=== PATIENT | female | born 1935 | race Hispanic/Latino ===

== ENCOUNTER 2017-03-14 17:41 | Inpatient (IN) | payer MEDICARE, OTHER ==
[2017-03-14 17:42] VITALS: BMI 21.3
[2017-03-14] MEDS ORDERED: TDAP Vaccine 0.5 mL Syr IM ONE (19:25)
[2017-03-14 20:01] LABS: EOS % 0.2 % (1.5-5.0); GRAN # 3.07 (1.4-6.5); GRAN % 75.7 % (50.0-68.0); HEMOGLOBIN 11.2 gm/dL (12.0-16.0); LYMPH # 0.8 (1.2-3.4); LYMPH % 20.2 % (22.0-35.0); MEAN CELL VOLUME 88.8 fL (80.0-105.0); MEAN CORPUSCULAR HEMOGLOBIN 29.2 pg (25.0-35.0); MEAN CORPUSCULAR HGB CONC 32.8 g/dl (31.0-37.0); MEAN PLATELET VOLUME 9.1 fl (7.0-11.0); MONO # 0.2 (0.1-0.6); MONO % 3.9 % (1.0-6.0); PLATELET COUNT 178 10^3/uL (120.0-450.0); RBC 3.84 10^6/uL (3.5-6.1); RED CELL DISTRIBUTION WIDTH 15.2 % (11.5-14.5); WHITE BLOOD COUNT 4.1 10^3/ul (4.5-11.0)
[2017-03-14 20:10] LABS: ALBUMIN 3.8 g/dL (3.0-4.8); ALT/SGPT 20 U/L (7-56); AST/SGOT 27 U/L (15-39); BLOOD UREA NITROGEN 12 mg/dL (7-21); CALCIUM 8.9 mg/dL (8.4-10.5); GFR AFRICAN-AMERICAN > 60; GFR NON-AFRICAN AMERICAN > 60
[2017-03-14 21:10] LABS: TROPONIN I < 0.01 ng/mL
--- NOTE | 2017-03-14 21:57 | ED PDOC ---
Arrival/HPI - General Chief Complaint: Trauma Time Seen by Provider: 03/14/17 19:24 Historian: Patient - History of Present Illness Narrative History of Present Illness (Text): 03/14/17 21:53 81-year-old female presents today with head injury status post fall. Patient states around 9:00 in the morning she was walking holding onto the wall to go to the bathroom. Patient states the next thing that She knew she was on the ground. Patient states she was able to get herself up. Patient states a friend of hers saw her head injury and thought that she should come into the hospital. Patient denies headaches or dizziness or weakness. Denies chest pain or shortness of breath. Patient denies abdominal pain. Patient states she had a fall back in January of this year and since then she has been having pain to the left hip. Patient states since then she has been having difficulty with ambulation. No medications have been taken for pain at home. No other complaints patient refusing any medications for pain at present time Symptom Onset: Sudden Symptom Course: Resolved Quality: Other (no pain) Past Medical History - Provider Review Nursing Documentation Reviewed: Yes - Travel History Have you recently traveled outside [place] w/in the past 3 mons?: No - Tetanus Immunization Tetanus Immunization: Unknown - Cardiac Hx Cardiac Disorders: Yes Hx Hypertension: Yes - Pulmonary Hx Respiratory Disorders: No - Neurological Hx Neurological Disorder: Yes Hx Seizures: Yes - HEENT Hx HEENT Disorder: Yes Hx Cataracts: Yes Other/Comment: left ear - hard of hearing - Renal Hx Renal Disorder: No - Endocrine/Metabolic Hx Hypothyroidism: Yes - Hematological/Oncological Hx Blood Disorders: Yes Hx Cancer: Yes (Leukemia) Hx Chemotherapy: No (Refuses) - Integumentary Hx Dermatological Disorder: No - Musculoskeletal/Rheumatological Hx Musculoskeletal Disorders: Yes Hx Arthritis: Yes Hx Falls: Yes Hx Fractures: Yes (R/ Shoulder and Ribs) - Gastrointestinal Hx Gall Bladder Disease: Yes - Genitourinary/Gynecological Hx Genitourinary Disorders: No (denies) - Psychiatric Hx Psychophysiologic Disorder: No (denies) Hx Depression: No Hx Emotional Abuse: No Hx Physical Abuse: No Hx Substance Use: No - Surgical History Hx Cholecystectomy: Yes - Anesthesia Hx Anesthesia: No Hx Anesthesia Reactions: No ("had a hard time waking me up.") - Suicidal Assessment Feels Threatened In Home Enviroment: No Family/Social History - Physician Review Nursing Documentation Reviewed: Yes Family/Social History: Unknown Family HX Smoking Status: Never Smoked Hx Alcohol Use: No Hx Substance Use: No Allergies/Home Meds Allergies/Adverse Reactions: Allergies No Known Allergies Allergy (Verified 05/17/14 16:23) Home Medications: Home Meds Medication Instructions Recorded Confirmed Metoprolol Tartrate [Metoprolol 25 mg PO DAILY 05/17/14 03/14/17 Tartrate] Aspirin [Ecotrin] 81 mg PO DAILY 03/14/17 03/14/17 levETIRAcetam [Keppra] 500 mg PO BID 03/14/17 03/14/17 Review of Systems - Review of Systems Constitutional: absent: Fatigue, Fevers Eyes: absent: Vision Changes, Photophobia, Eye Pain Respiratory: absent: SOB, Cough Cardiovascular: absent: Chest Pain, Palpitations Gastrointestinal: absent: Nausea Genitourinary Female: absent: Dysuria, Frequency Musculoskeletal: Arthralgias. absent: Back Pain, Neck Pain Skin: Rash Neurological: absent: Headache, Dizziness Physical Exam Vital Signs Reviewed: Yes Vital Signs Temp Pulse Resp BP Pulse Ox 03/14/17 20:18 98.3 F 82 18 131/78 98 03/14/17 17:56 98.3 F 86 114 H 144/77 98 Temperature: Afebrile Blood Pressure: Normal Pulse: Regular Respiratory Rate: Normal Appearance: Positive for: Well-Appearing, Non-Toxic, Comfortable Pain Distress: None Mental Status: Positive for: Alert and Oriented X 3 - Systems Exam Head: Present: Contusion, Swelling, Ecchymosis Pupils: Present: PERRL Extroacular Muscles: Present: EOMI Conjunctiva: Present: Normal Ears: Present: Normal, NORMAL TM Mouth: Present: Moist Mucous Membranes Pharnyx: Present: Normal Neck: Present: Normal Range of Motion. No: MIDLINE TENDERNESS, Paraspinal Tenderness Respiratory/Chest: Present: Clear to Auscultation, Good Air Exchange. No: Respiratory Distress, Accessory Muscle Use Cardiovascular: Present: Regular Rate and Rhythm, Normal S1, S2. No: Murmurs Abdomen: Present: Normal Bowel Sounds. No: Tenderness, Distention, Rebound, Guarding Back: Present: Normal Inspection. No: CVA Tenderness, Midline Tenderness, Paraspinal Tenderness Upper Extremity: Present: Normal ROM, NORMAL PULSES. No: Tenderness, Swelling Lower Extremity: Present: NORMAL PULSES, Tenderness (left hip; + ttp over anterior aspect; no erythema; no edema,no ecchymosis;), Swelling, Erythema, Neurovascularly Intact, Other (pelvis stable). No: Normal ROM Neurological: Present: GCS=15, Speech Normal Skin: Present: Warm, Dry Psychiatric: Present: Alert, Oriented x 3 Medical Decision Making ED Course and Treatment: 03/14/17 21:59 81-year-old female with head injury status post fall. Patient unsure what happened and does not believe that she tripped over anything. pt refusing medications for pain. CBC within normal limits CMP within normal limits Troponin within normal limits Chest x-ray: No infiltrate or effusion X-ray of the left hip: Question pubic ramus fracture EKG: NSr at 87b/m no st elevations, CAT scan of the head:FINDINGS: Brain: Moderate volume loss is seen in keeping with age. Moderate decrease in attenuation of the periventricular white matter likely related to small vessel ischemic change. Ventricles: Unremarkable. No ventriculomegaly. Bones/joints: No definite skull fracture is seen. Small osteoma of the inner skull table and the left frontal region. Soft tissues: Large hematoma of the forehead which is multifocal with marked adjacent swelling. Sinuses: Unremarkable as visualized. No acute sinusitis. Mastoid air cells: Unremarkable as visualized. No mastoid effusion. Orbits: No midline shift is present.There is no evidence of retrobulbar hemorrhage. The orbits are normal. Sella: The prominent suprasellar mass 2.1 cm. Other findings: No acute hemorrhage is seen IMPRESSION: Large hematoma left forehead from recent fall. No skull fracture seen. No intracranial bleed. There is a mass at the suprasellar region 2.1 cm. Consider correlation with MRI of the brain with contrast for more definitive assessment. CAT scan of the maxillofacial bones:FINDINGS: Bones/joints: Osteoma of the inner skull table with the left frontal region. No facial bone fractures are seen. Soft tissues: There is severe soft tissue edema consistent with posttraumatic contusion and hematoma associated with the left frontal scalp. Orbits: There is no evidence of retrobulbar hemorrhage. The orbits are normal. Sinuses: Small retention cyst is present in the left maxillary sinus. No air- fluid levels. Sella: Suprasellar mass see CT head report. IMPRESSION: Marked soft tissue edema and hematoma formation left forehead. No calvarial or facial bone fractures. Suprasellar mass. ct of pelvis; r/o hip fracture FINDINGS: Bones/joints: Bony structures are osteopenic. There are degenerative changes in the lower lumbar spine. There are compression deformities L4 and L5, age-indeterminate. There is disc disease L34, L4-5 and L5-S1. Upper sacrum is intact. There is deformity of the sacrococcygeal junction with anterior angulation consistent with fracture. There is edema in the dorsal soft tissues at the fracture site. There is patchy sclerosis in the left sacral ala. The sacroiliac joints are symmetric. Right ileum, ischium and pubis are intact. Right hip is intact. There is narrowing of the right hip joint. Symphysis pubis is normal in width There is a comminuted fracture of the left pubis extending into the acetabulum. There is a comminuted fracture of the left ischium. There is calcification lateral to the left ischial fracture, possibly myositis ossificans There is minimal edema in muscles of the pelvic floor on the left. Left hip is intact. There is degenerative with grade along the iliac bones bilaterally. Soft tissues: See above Vasculature: There are vascular calcifications. Stomach and bowel: There is mild gaseous distention of visualized small bowel.Colon is incompletely distended which limits evaluation. Bladder: Urinary bladder is markedly distended, 12 x 12 x 15 cm. Dome of the bladder is approximately at the level of the umbilicus. No stones. Other findings: Inferior portion of the liver is not optimally evaluated. Portion of the spleen is included on the images. IMPRESSION: Left ischial and pubic fractures with soft tissue swelling and possible myositis ossificans; osteopenia degenerative change; sacral fracture at the sacrococcygeal junction; compression fractures L4 and L5, age-indeterminate; markedly distended bladder suggest voiding dysfunction and urinary retention 03/14/17 22:[address] patient urinated a large amount in ER. abdomen no tender. impression; syncope, head injury, facial contusion, pelvic fractures, compression fracture lumbar spine admit to tele. dr. childers. - Lab Interpretations Lab Results: 03/14/17 19:40 03/14/17 19:40 Lab Results 03/14/17 19:40: WBC 4.1 L D, RBC 3.84, Hgb 11.2 L, Hct 34.1 L, MCV 88.8, MCH 29.2, MCHC 32.8, RDW 15.2 H, Plt Count 178, MPV 9.1, Gran % 75.7 H, Lymph % ( Auto) 20.2 L, [facility] % (Auto) 3.9, Eos % (Auto) 0.2 L, Baso % (Auto) 0.0, Gran # 3.07, Lymph # 0.8 L, [facility] # 0.2, Eos # 0.0, Baso # 0.00 03/14/17 19:40: Sodium 137, Potassium 4.2, Chloride 102, Carbon Dioxide 27, Anion Gap 12, BUN 12, Creatinine 0.8, Est GFR ( Amer) > 60, Est GFR (Non- Af Amer) > 60, Random Glucose 107, Calcium 8.9, Total Bilirubin 0.7, AST 27, ALT 20, Alkaline Phosphatase 141 H, Lactate Dehydrogenase 475, Total Creatine Kinase 58, Troponin I < 0.01 D, Total Protein 7.6, Albumin 3.8, Globulin 3.8, Albumin/Globulin Ratio 1.0 L - RAD Interpretation Radiology Orders: 03/14/17 19:24 HEAD W/O CONTRAST [CT] Stat MAXILLOFACIAL W/O CONTRAST [CT] Stat CHEST PORTABLE [RAD] Stat Hip Left [HIP MIN 2V W/ PELVIS LT] [RAD] Stat 03/14/17 21:47 PELVIS W/O PO OR IV CONTRAST [CT] Stat - Medication Orders Current Medication Orders: Discontinued Medications Tetanus/Reduced Diphtheria/Acell Pertussis (Boostrix Vaccine Inj) 0.5 ml IM .ONCE ONE Stop: 03/14/17 19:26 Last Admin: 03/14/17 19:58 Dose: 0.5 ml Disposition/Present on Arrival - Present on Arrival Any Indicators Present on Arrival: No History of DVT/PE: No History of Uncontrolled Diabetes: No Urinary Catheter: No History of Decub. Ulcer: No History Surgical Site Infection Following: None - Disposition Have Diagnosis and Disposition been Completed?: Yes Diagnosis: Head injury, Traumatic hematoma of forehead, Facial contusion, Pelvic fracture , Lumbar compression fracture Disposition: HOSPITALIZED Disposition Time: 22:57 Patient Plan: Admission, Telemetry Condition: FAIR Referrals: Taylor,Agustín A, MD [Primary Care Provider] - Follow up with primary Forms: [employer] (Frisian)
[2017-03-14 23:26] LABS: PH,URINE 6.5 (4.7-8.0); URINE BILIRUBIN NEGATIVE (NEGATIVE); URINE BLOOD NEGATIVE (NEGATIVE); URINE GLUCOSE (UA) NEGATIVE (NEGATIVE); URINE LEUKOCYTE ESTERASE NEGATIVE Leu/uL (NEGATIVE); URINE NITRATE NEGATIVE (NEGATIVE); URINE PROTEIN NEGATIVE mg/dL (<30 mg/dL); URINE UROBILINOGEN 0.2 E.U./dL (<1 E.U./dL)
[2017-03-14 23:38] LABS: URINE APPEARANCE CLEAR (CLEAR); URINE COLOR STRAW (YELLOW)
--- NOTE | 2017-03-15 08:37 | CT ---
PROCEDURE: CT HEAD WITHOUT CONTRAST. HISTORY: headache COMPARISON: None available. TECHNIQUE: Axial computed tomography images were obtained through the head/brain without intravenous contrast. Radiation dose: Total exam DLP = 725 mGy-cm. This CT exam was performed using one or more of the following dose reduction techniques: Automated exposure control, adjustment of the mA and/or kV according to patient size, and/or use of iterative reconstruction technique. FINDINGS: HEMORRHAGE: No intracranial hemorrhage. BRAIN: No mass effect or edema. No atrophy or chronic microvascular ischemic changes. VENTRICLES: Unremarkable. No hydrocephalus. CALVARIUM: Unremarkable. PARANASAL SINUSES: Unremarkable as visualized. No significant inflammatory changes. MASTOID AIR CELLS: Unremarkable as visualized. No inflammatory changes. OTHER FINDINGS: Large left frontal soft tissue hematoma. IMPRESSION: Large left frontal soft tissue hematoma.
--- NOTE | 2017-03-15 08:47 | CT ---
PROCEDURE: CT MAXILLOFACIAL BONES WITHOUT CONTRAST HISTORY: fall, left sided head injury/orbital swelling COMPARISON: None TECHNIQUE: Contiguous axial CT images of the maxillofacial bones were obtained. Coronal and sagittal reformats were generated. Radiation dose: Total exam DLP = mGy-cm. This CT exam was performed using one or more of the following dose reduction techniques: Automated exposure control, adjustment of the mA and/or kV according to patient size, and/or use of iterative reconstruction technique. FINDINGS: NASAL BONES: Unremarkable. ORBITS: Unremarkable. PARANASAL SINUSES/ MASTOIDS: Clear. MAXILLA: Unremarkable. MANDIBLE/ TEMPOROMANDIBULAR JOINTS: Unremarkable. SKULL BASE: Unremarkable. TEMPORAL BONES: Middle ears and mastoid grossly unremarkable. OTHER FINDINGS: Large left frontal soft tissue hematoma.. IMPRESSION: Large left frontal soft tissue hematoma. No fracture.
--- NOTE | 2017-03-15 09:11 | CT ---
PROCEDURE: CT Pelvis without contrast HISTORY: left hip pain/ ? pelvis fx COMPARISON: None. TECHNIQUE: Contiguous axial images of the pelvis . No intravenous or oral contrast given. Coronal and sagittal reformats generated. Radiation dose: Total exam DLP = 197 mGy-cm. This CT exam was performed using one or more of the following dose reduction techniques: Automated exposure control, adjustment of the mA and/or kV according to patient size, and/or use of iterative reconstruction technique. FINDINGS: BLADDER: Unremarkable. No mass. REPRODUCTIVE ORGANS: Unremarkable. VISUALIZED BOWEL: Unremarkable. PERITONEUM: Unremarkable, as visualized. No free fluid. No free air. LYMPH NODES: Unremarkable. No enlarged lymph nodes. BONES: Left superior pubic ramus and inferior pubic ramus fractures with callus formation and possible myositis ossificans. No other fracture deformity is observed. Extensive soft tissue swelling. VASCULATURE: Unremarkable. OTHER FINDINGS: None. IMPRESSION: Left superior pubic ramus and inferior pubic ramus fractures with callus formation and possible myositis ossificans. No other fracture deformity is observed. Extensive soft tissue swelling.
[2017-03-15] MEDS: Metoprolol Succinate 25 mg XL Tab PO SCH (09:54)
--- NOTE | 2017-03-15 10:31 | RAD ---
HISTORY: syncope COMPARISON: No prior. FINDINGS: LUNGS: Poor inspiration with low lung volumes, mild crowded bronchovascular markings and mild bibasilar atelectasis. The interstitial markings are also slightly increased and coarsened which may due to poor inspiration as well however the possibility of some mild underlying sequela of reactive/inflammatory airway disease not excluded. . Note made of what may represent tiny granuloma right lateral mid lung field. PLEURA: No significant pleural effusion identified, no pneumothorax apparent. CARDIOVASCULAR: Mild cardiomegaly. OSSEOUS STRUCTURES: There is a non fused fracture distal right clavicle Degenerative changes both shoulder girdles. VISUALIZED UPPER ABDOMEN: Normal. OTHER FINDINGS: None. IMPRESSION: Poor inspiration bold with low lung volumes, mild crowded bronchovascular markings and mild bibasilar atelectasis. The interstitial markings are also slightly increased and coarsened which may due to poor inspiration as well however the possibility of some mild underlying sequela of reactive/inflammatory airway disease not excluded. Probable tiny granuloma right lateral mid lung field. Mild cardiomegaly. The
--- NOTE | 2017-03-15 12:11 | CARD ---
APPROVED REPORT EKG Measurement Heart [id number] <Conclusion> Normal sinus rhythm Abnormal QRS-T angle, consider primary T wave abnormality Abnormal ECG
--- NOTE | 2017-03-15 15:03 | RAD ---
PROCEDURE: Pelvis left hip 03/14/2017. . AP view of the pelvis and frogleg lateral view left hip performed. Note that the study is limited with diminished fine soft tissue and bone detail. HISTORY: Left hip pain. COMPARISON: Comparison made with prior CT scan chest abdomen pelvis 05/18/2014 which image the pelvis and left hip in 3 planes. FINDINGS: BONES: There are fractures of the left superior and inferior pubic rami. Followup CT scan recommended. JOINTS: The the femoral heads appear appropriately located within the respective acetabula. SI joints are of poorly delineated SOFT TISSUES: Normal. OTHER FINDINGS: Multilevel degenerative spondylosis of the lumbar spine with dextroscoliosis centered in the upper lumbar region. IMPRESSION: Fractures of the left superior and inferior pubic rami. Femoral heads are appropriately located within the respective acetabula. Followup CT scan of the pelvis is recommended.
--- NOTE | 2017-03-15 16:36 | CON ---
DATE: 03/15/2017 ORTHOPEDIC CONSULT HISTORY OF PRESENT ILLNESS: The patient lives alone and was found to have multiple falls brought into the ER last night with complaint of pain in her left knee, which is osteoarthritis and the pelvis where she has a healing fracture of pubic-ischial rami, not displaced but with abundant callus, and I feel as though she could get up out of bed at this time because the fracture is at least 2 or 3 weeks' old or more, and she does have the left knee that is arthritic, so I told her she could get up out of bed today. She does not need surgery. We will get her out of bed with therapy, and during the stay, I will probably inject her left knee with Depo-Medrol, so she could participate in therapy with less pain. FINAL DIAGNOSIS: Left pubic rami with ischial rami fracture and osteoarthritis of the left knee. PLAN: She does live alone, so we could get her to subacute rehab before she goes home to strengthen her up, so she does not fall as much. Darryl Garcia DO
--- NOTE | 2017-03-15 23:43 | HP ---
SUBJECTIVE: The patient is 81 years old who lives by herself, state she fell last week. She was having some difficulty ambulating because of hip pain, but yesterday, she fell again she stated it happen so fast, she does not know really what happen, but she did not pass out and she did not lose consciousness either. She stated usually neighbor keep eye on her when they came to see, they called ambulance and she was brought to emergency room for further evaluation. The patient did sustain some facial injury and she has deep ecchymosis in her left forehead and periorbital area, slight headache, but no nausea or vomiting. No blurry vision. PAST MEDICAL HISTORY: She has significant past medical history of: 1. 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 2. History of seizure disorder. 3. Hypertension. SOCIAL HISTORY: She lives with her sister. Denies smoking, drinking or alcohol use. She states she is active, she takes care of her daily chores. ALLERGIES: SHE IS NOT ALLERGIC TO ANY MEDICATION. MEDICATIONS AT HOME: She is on aspirin 81 daily, Keppra 500 twice a day and metoprolol 25 daily. REVIEW OF SYSTEMS: Significant for complaint of left hip pain. PHYSICAL EXAMINATION: GENERAL: She is awake and alert. She has thick ecchymosis around her left periorbital area and left forehead. She has actually blood blister their. VITAL SIGNS: She is afebrile, pulse 88, respirations 18 and blood pressure 110/62. LUNGS: Bilateral fair airflow. No rhonchi or crackle. HEART: S1 and S2 audible. ABDOMEN: Soft and nontender. No rebound. No guarding. NEUROLOGIC: She is awake and alert, able to communicate. EXTREMITIES: Some limited movement in the lower extremities. LABORATORY DATA: She has leukopenia with WBC is 4.1, hemoglobin 11.2, hematocrit 34 and platelet 178. Chemistries; sodium 137, potassium 4.2, chloride 102, CO2 of 27, BUN 12, and creatinine 0.8. Blood sugar of 107. LFTs are within normal limits. Alk phos is 141. Urinalysis is unremarkable. Maxillofacial CT scan shows a large left frontal soft tissue hematoma, but no fracture and her CT of the pelvis shows left superior pubic ramus and inferior pubic ramus fracture with callus formation and possible myositis ossificans. ASSESSMENT: 1. Status post fall. 2. Left periorbital contusion. 3. Old left pubic inferior and superior pubic ramus fracture. 4. Deconditioning, difficulty walking. 5. Myelodysplastic syndrome. 6. Questionable seizure disorder. 7. Hypertension. PLAN: Awaiting arthro evaluation. I think it is old injury. We can evaluate her for physical therapy. She is going to need either TCU or subacute rehab depending on her performance. We will re-evaluate the patient in a.m. Rojelio Mortensen MD
[2017-03-16 07:45] LABS: BASO # 0.01 K/mm3 (0.0-2.0); BASO % 0.2 % (0.0-3.0); EOS % 0.9 % (1.5-5.0); GRAN # 2.72 (1.4-6.5); GRAN % 63.8 % (50.0-68.0); HEMOGLOBIN 10.2 gm/dL (12.0-16.0); LYMPH # 1.2 (1.2-3.4); LYMPH % 27.4 % (22.0-35.0); MEAN CELL VOLUME 90.3 fL (80.0-105.0); MEAN CORPUSCULAR HEMOGLOBIN 29.1 pg (25.0-35.0); MEAN CORPUSCULAR HGB CONC 32.3 g/dl (31.0-37.0); MEAN PLATELET VOLUME 9.5 fl (7.0-11.0); MONO # 0.3 (0.1-0.6); MONO % 7.7 % (1.0-6.0); PLATELET COUNT 155 10^3/uL (120.0-450.0); RED CELL DISTRIBUTION WIDTH 15.6 % (11.5-14.5); WHITE BLOOD COUNT 4.3 10^3/ul (4.5-11.0)
[2017-03-16 07:57] LABS: ALB/GLOB RATIO 0.9 (1.1-1.8); ALBUMIN 3.1 g/dL (3.0-4.8); ALT/SGPT 18 U/L (7-56); AST/SGOT 19 U/L (15-39); BLOOD UREA NITROGEN 16 mg/dL (7-21); CALCIUM 8.2 mg/dL (8.4-10.5); GFR AFRICAN-AMERICAN > 60; GFR NON-AFRICAN AMERICAN > 60
[2017-03-16] MEDS: Enoxaparin 30 mg Syringe SC SCH (10:47)
[2017-03-16] MEDS: Metoprolol Succinate 25 mg XL Tab PO SCH (10:47)
--- NOTE | 2017-03-16 17:10 | PN ---
SUBJECTIVE: The patient is an 81-year-old seen and examined, laying in bed, seem to be comfortable, awake and alert, oriented and communicative. PHYSICAL EXAMINATION: VITAL SIGNS: She is afebrile, pulse 63, respirations 18, blood pressure 107/65. LUNGS: Bilateral fair air flow. No rhonchi or crackle. HEART: S1 and S2, audible. No murmur. ABDOMEN: Soft and nontender. No rebound. No guarding. NEUROLOGIC: She is awake and alert. Able to communicate. Moves all extremities. HEAD AND NECK: She has left periorbital bruise. She has a small hematoma on the left forehead. LABORATORY EXAM: WBC is 4.3, hemoglobin 10.2, hematocrit 31.6, platelet 155. Chemistry: Sodium 134, potassium 4.7, chloride 100, CO2 of 28, BUN 16, creatinine 0.8. Blood sugar of 88. LFTs are within normal limit. Urine analysis is unremarkable. ASSESSMENT: 1. Status post fall. 2. Left periorbital contusion and ecchymosis. 3. Left inferior and superior pubic ramus fracture. 4. Deconditioning and difficulty walking. 5. History of hypertension. 6. Myelodysplastic syndrome. PLAN: The patient is clinically stable. TCU evaluation has been requested. Discontinue telemetry and if bed is available, the patient will be transferred to TCU. Rojelio Mortensen MD
--- NOTE | 2017-03-17 07:27 | CON ---
HISTORY OF PRESENT ILLNESS: An 81-year-old pleasant female seen at bedside with a chief complaint of painful elongated thickened fungal nail plates as well as painful hyperkeratotic lesions. The patient states she took severe fall and her entire face is swollen and ecchymotic. She states she is feeling much better since admission. PAST MEDICAL HISTORY: Significant for seizure disorder, essential hypertension, PAD, myeloid leukemia and osteoarthritis. ALLERGIES: THE PATIENT HAS NO KNOWN DRUG ALLERGIES. CURRENT MEDICATIONS: Include Keppra and metoprolol. SOCIAL HISTORY: The patient denies any illicit drug use. Does not drink alcohol and never smoked. She currently lives with her sister and tries to stay as active as possible for an 81-year-old. LABORATORY FINDINGS: Reveal a white count of 4.3, hemoglobin of 10.2, hematocrit of 31.6, platelet count of 155. OBJECTIVE: VITAL SIGNS: Temperature of 98.7, pulse rate of 66, blood pressure 109/64, respiratory rate of 18. EXTREMITIES: Weakly palpable dorsalis pedis, pulses are nonpalpable. Posterior to be a post noted bilaterally. Capillary refilling time is delayed x10. SKIN: Lower extremity skin ____ discolored bilaterally. There are no interdigital macerations noted. Absent ____ hair growth noted bilaterally. All nail plates present with elongation, dystrophy and with severe subungual fungal debris with pain upon palpation. There were noted to be hyperkeratotic lesions on plantar aspect of each foot. ASSESSMENT: Painful onychomycosis and painful hyperkeratosis bilaterally. PLAN: The patient was examined, excisional debridement was performed on all nail plates and hyperkeratotic lesions. We will order moisturizing cream to be applied to both feet daily. Flavio Saldana DPM
[2017-03-17] MEDS: Metoprolol Succinate 25 mg XL Tab PO SCH (09:36)
[2017-03-17] MEDS: Enoxaparin 30 mg Syringe SC SCH (09:38)
--- NOTE | 2017-03-17 11:27 | PN ---
DATE: SUBJECTIVE: The patient has no headaches or dizziness and no nausea. She says she is able to sleep last night. PHYSICAL EXAMINATION: VITAL SIGNS: Temperature 97.4, pulse of 62, blood pressure 130/60, and respirations 19. HEENT: Traumatic side of the left head. There is an ecchymosis in the left eye and on the left part of the forehead. GENERAL: The patient is comfortable, in no acute distress.Anicteric sclerae. Moist mucosa. NECK: No JVD or adenopathy. CARDIAC: S1, S2. No murmurs. No rubs. Regular. RESPIRATORY: Clear to auscultation bilaterally. No wheezes, rales, or rhonchi. Good air entry. ABDOMEN: Bowel sounds are positive, soft, nontender, and nondistended. EXTREMITIES: No edema. Has 1+ pulses. LABORATORY DATA: White count of 4.3 and hemoglobin 10.4. Creatinine 0.8. ASSESSMENT: 1. Fall. 2. Left periorbital ecchymosis. 3. Pubic ramus fracture. 4. Gait dysfunction. 5. Myelodysplastic syndrome. PLAN: The patient is on Keppra. He is going to continue Lovenox for DVT prophylaxis and metoprolol. The patient is on aspirin daily. She is on heart healthy diet. Jose Ramon Faye MD [facility]
--- NOTE | 2017-03-17 12:28 | PN ---
SUBJECTIVE: The patient is confused. She is trying to get out of bed *------* restraints. She is looking for her robe. PHYSICAL EXAMINATION: VITAL SIGNS: Temperature is 97.3, pulse of 112, blood pressure 146/73, respirations 19. GENERAL: The patient is comfortable, in no acute distress. HEENT: Anicteric sclerae. Moist mucosa. NECK: No JVD or adenopathy. CARDIAC: S1, S2. No murmurs. No rubs. Regular. RESPIRATORY: Clear to auscultation bilaterally. No wheezes, rales, or rhonchi. Good air entry. ABDOMEN: Bowel sounds are positive, soft, nontender, and nondistended. EXTREMITIES: No edema. Has 1+ pulses. LABORATORY DATA: White count of 6.4, hemoglobin 14.4, creatinine 0.7. Neck and chest CT shows an 8.9 cm lucid mass with limited internal complications representing a benign lipoma deep to the right sternocleidomastoid muscle with a nonspecific 3 mm nodule seen at the right lower lobe. ASSESSMENT: 1. Delirium. 2. Chronic obstructive pulmonary disease, acute. 3. Hypertension. 4. Right neck lipoma. 5. 3 mm right lung nodule. 6. Dementia, probable Alzheimer's type. 7. Vitiligo. PLAN: The patient is confused and agitated. The patient is on DuoNeb treatments for COPD. The patient is on Protonix. The patient is going to continue Solu-Medrol. The patient is on Zithromax for antibiotics. The patient is on BiPAP. The patient has an echo that has been ordered. Dr. Elton Ying is going to be seeing the patient. The patient had a troponin initially that was negative. I will place the patient on Ativan to help with agitation. Jose Ramon Faye MD
[2017-03-18] MEDS: Metoprolol Succinate 25 mg XL Tab PO SCH (11:23)
[2017-03-18] MEDS: Enoxaparin 30 mg Syringe SC SCH (11:24)
[2017-03-18 17:44] VITALS: BP 103/69; PULSE 78; RESP 18; TEMP 98.1; O2SAT 95
--- NOTE | 2017-03-19 04:26 | DS ---
HISTORY OF PRESENT ILLNESS: The patient is an 81 years old seen and examined, sitting in chair seems to be comfortable. Still has large hematoma on her left forehead and periorbital area. Doing well. Has generalized weakness. PHYSICAL EXAMINATION VITAL SIGNS: She is afebrile, pulse is 69, respirations are 20 and blood pressure is 122/72. LUNGS: Bilateral fair airflow. No rhonchi or crackle. HEART: S1 and S2 audible. No murmur. ABDOMEN: Soft and nontender. No rebound. No guarding. NEUROLOGIC: The patient is awake and alert, able to communicate. Moves all extremities. LABORATORY DATA: There is no new lab available today. ASSESSMENT AND PLAN: 1. Status post fall. 2. Left periorbital hematoma. 3. Left forehead hematoma. 4. History of hypertension. 5. History of seizure disorder. PLAN: The patient is more ambulatory. I will discontinue Lovenox. We will continue metoprolol. The patient is awaiting TCU acceptance and probably she will be moving to TCU today. Rojelio Mortensen MD
== END 2017-03-18 23:05 | DRG 605 ==
LOC: ED 17:41 → ERH 23:08 → 2RSO 03-15 01:34 → 5RSO 03-17 15:54
PROVIDERS: ADMIT Internal Medicine; ATTEND Internal Medicine
PROC: 3E0234Z Introduction of Serum, Toxoid and Vaccine into Muscle, Percutaneous Approach (ICD-10-PCS; 2017-03-14)
PROC: 0HBRXZZ Excision of Toe Nail, External Approach (ICD-10-PCS; principal; 2017-03-16)
PROC: 0HBRXZZ Excision of Toe Nail, External Approach (ICD-10-PCS; 2017-03-16)
PROC: 0HBRXZZ Excision of Toe Nail, External Approach (ICD-10-PCS; 2017-03-16)
PROC: 0HBRXZZ Excision of Toe Nail, External Approach (ICD-10-PCS; 2017-03-16)
PROC: 0HBRXZZ Excision of Toe Nail, External Approach (ICD-10-PCS; 2017-03-16)
PROC: 0HBRXZZ Excision of Toe Nail, External Approach (ICD-10-PCS; 2017-03-16)
PROC: 0HBRXZZ Excision of Toe Nail, External Approach (ICD-10-PCS; 2017-03-16)
PROC: 0HBRXZZ Excision of Toe Nail, External Approach (ICD-10-PCS; 2017-03-16)
PROC: 0HBRXZZ Excision of Toe Nail, External Approach (ICD-10-PCS; 2017-03-16)
PROC: 0HBRXZZ Excision of Toe Nail, External Approach (ICD-10-PCS; 2017-03-16)
DX: S00.83XA Contusion of other part of head, initial encounter (principal); S00.12XA Contusion of left eyelid and periocular area, initial encounter; C92.10 Chronic myeloid leukemia, BCR/ABL-positive, not having achieved remission; M48.56XA Collapsed vertebra, not elsewhere classified, lumbar region, initial encounter for fracture; G30.9 Alzheimer's disease, unspecified; F02.80 Dementia in other diseases classified elsewhere, unspecified severity, without behavioral disturbance, psychotic disturbance, mood disturbance, and anxiety; I10 Essential (primary) hypertension; B35.1 Tinea unguium; J44.9 Chronic obstructive pulmonary disease, unspecified; G40.909 Epilepsy, unspecified, not intractable, without status epilepticus; D17.0 Benign lipomatous neoplasm of skin and subcutaneous tissue of head, face and neck; L85.9 Epidermal thickening, unspecified; M17.12 Unilateral primary osteoarthritis, left knee; D46.9 Myelodysplastic syndrome, unspecified; R29.6 Repeated falls; L80 Vitiligo; H91.90 Unspecified hearing loss, unspecified ear; W19.XXXA Unspecified fall, initial encounter; S32.592D Other specified fracture of left pubis, subsequent encounter for fracture with routine healing; Z23 Encounter for immunization; Z79.82 Long term (current) use of aspirin; Y93.01 Activity, walking, marching and hiking; Y92.008 Other place in unspecified non-institutional (private) residence as the place of occurrence of the external cause; Y99.9 Unspecified external cause status

== ENCOUNTER 2017-03-18 23:05 | Inpatient (IN) | payer OTHER ==
[2017-03-18 23:30] VITALS: BMI 22.0
[2017-03-19] MEDS: Metoprolol Succinate 25 mg XL Tab PO SCH (08:39)
--- NOTE | 2017-03-19 14:15 | CON ---
DATE: 03/19/2017 The patient is an 81-year-old female who was first admitted to the hospital on 03/14/2017 with pain in the pelvis. It was found on the x-ray, she had a callus around her left pubic rami fracture, which was stable and had good callus reaction to make it stable so she could ambulate. Today, when she was seen she has no pain, she is recovering from facial hematomas that occured about two weeks ago. The pelvis fracture is not tender, but she does callus indicating it was at least 3 weeks old or more but she was walking and can do exercises and she has a stable healing left pubic rami fracture compatible for good outcome once she feels confident about walking with a walker. Hope she can go home with the family when she is done with the [facility] floor. Darryl Garcia DO [facility]
--- NOTE | 2017-03-19 22:46 | CON ---
DATE: 03/19/2017 REASON FOR CONSULTATION: Hematoma. CONSULTING PHYSICIAN: Frank Galeano DO REFERRING PHYSICIAN: Rojelio Mortensen MD HISTORY OF PRESENT ILLNESS: This is an 81-old female with past medical history significant for seizure disorder, hypertension and an old hip fracture, who is status post fall with head injury that occurred on 03/14/2017. The patient reports that patient was ambulating and does not remember how she fell, but ended up hitting her face on the ground. She was able to get herself up and afterwards a friend brought her to the hospital. In the hospital, she had a CT head which demonstrated a large hematoma of the left forehead, but no skull or intracranial pathology. She also had a CT scan of the maxillofacial bone, which demonstrated no facial bone fractures. Ears, nose and throat service has been consulted for evaluation upon seeing the patient, she endorses a history above. She denies any changes in vision, headaches, blurry vision, difficulty breathing, change in her breathing, difference in sensation or movement of her face, discharge or bleeding from her nose. She feels that the hematoma and bruise on her left side of her face that is somewhat unchanged since admission. PAST MEDICAL HISTORY: As above. ALLERGIES: NO KNOWN DRUG ALLERGIES. MEDICATIONS AT HOME: Include metoprolol, aspirin and Keppra. SURGICAL HISTORY: Cholecystectomy. SOCIAL HISTORY: No alcohol or tobacco abuse. REVIEW OF SYSTEMS: Negative as per HPI. PHYSICAL EXAMINATION: GENERAL: She is awake, alert and oriented x3 and in no acute distress. Lying comfortably. VITAL SIGNS: Temperature is 97.5, pulse 62, blood pressure 102/61, respiratory rate 17, O2 saturations 99% on room air. HEENT: Eyes: Extraocular movements are intact. Pupils equal, round and reactive to light. Ears: External auricles unremarkable. Canals clear. Tympanic membranes intact. Face: She has significant ecchymosis to the left forehead, periorbital, cheek, chin and neck area with associated hematoma to the left frontal forehead that is very slightly fluctuant. No other collections are noted. No bony step-off. Sensation is intact. Facial motion is symmetrical. Tender to palpation. Nose: No discharge. No epistaxis. Oral cavity. Oropharynx. She is edentulous. Tongue movable in midline. Mucosa dry. Uvula midline. NECK: Ecchymosis to the left neck. Soft,nontender and no lymphadenopathy. LUNGS: Equal and unlabored. LABORATORY DATA: Her most recent labs indicate a white blood cell count of 4.3, hemoglobin 10.2, hematocrit 31.6, platelet count 155. PT 11.2. INR 1.06. PTT 26.2. IMAGING: She has a head CT from 03/14/2017 which read impression large left frontal soft tissue hematoma. She has a maxillofacial CT from 03/14/2017, which read again large left frontal soft tissue hematoma without fractures. ASSESSMENT AND PLAN: This is an 81-year-old female with past medical history of myelodysplastic syndrome, hypertension, seizure disorder and previous hip fracture, who sustained a fall and trauma to her head and face leading to a left forehead hematoma and left facial ecchymosis without any associated fracture. At this point, I recommend conservative management with pain control as needed and frequent warm compresses to the left face in order to helps the hematoma reabsorb. Should the hematoma not reabsorb over the next days to weeks, could consider incision and drainage of the hematoma; however that does not seem warranted at this time. The risk of the management is per the medical team. The patient can now follow up as an outpatient for resolution of her symptoms. Thank you for allowing us to participate in this patient's care. Frank Galeano DO
--- NOTE | 2017-03-19 23:03 | HP ---
HISTORY OF PRESENT ILLNESS: Patient is a 81-year-old who tripped and fell at home, developed left periorbital ecchymosis and forehead hematoma, had CT scan done, there is no intracranial bleed. Patient was deconditioned, needs physical therapy. So transferred to TCU for close monitoring and rehab. PAST MEDICAL HISTORY: She has significant past medical history of hypertension, history of seizure disorder. ALLERGIES: She is not allergic to any medication. MEDICATION AT HOME: She is on aspirin, she is on Keppra 500 twice a day, metoprolol 25 daily. REVIEW OF SYSTEMS: Significant for slight headache and forehead hematoma. PHYSICAL EXAMINATION GENERAL: Patient is awake and alert. Communicative. VITAL SIGNS: She is afebrile. Pulse 92, respiration 18, blood pressure 103/58. LUNGS: Bilateral fair airflow. No rhonchi or crackles. HEART: S1 and S2 audible. No murmur. ABDOMEN: Soft, nontender, no rebound, no guarding. NEUROLOGICAL: Patient is awake, and alert. Communicative. ASSESSMENT: 1. Status post fall. 2. Left periorbital ecchymosis and left forehead hematoma. 3. Hypertension. 4. History of seizure disorder. PLAN: Continue patient on current medication. We will encourage gait training. has been consulted. She might possibly need drainage of forehead hematoma. Rojelio Mortensen MD
[2017-03-20] MEDS: Metoprolol Succinate 25 mg XL Tab PO SCH (08:18)
--- NOTE | 2017-03-20 20:11 | PN ---
DATE: 03/20/2017 SUBJECTIVE: The patient is an 81 years old seen and examined, lying in bed, seems to be comfortable, participating with therapy, denies any nausea or vomiting. PHYSICAL EXAMINATION: VITAL SIGNS: She is afebrile, pulse 87, respirations 18, blood pressure 125/70. CARDIOPULMONARY: S1 and S2, audible. LUNGS: Bilateral fair airflow. No rhonchi or crackle. ABDOMEN: Soft, nontender, no rebound, no guarding. NEUROLOGIC: She is awake and alert, communicative. ASSESSMENT AND PLAN: 1. Status post fall. 2. Left periorbital ecchymosis. 3. Left forehead hematoma. 4. Hypertension. 5. History of seizure disorder. PLAN: We will continue patient on current medications and she seems to be improving. ENT input noted and appreciated, and according to that, there is no need for hematoma drainage. We will reevaluate the patient. Rojelio Mortensen MD
[2017-03-21] MEDS: Metoprolol Succinate 25 mg XL Tab PO SCH ×2 (05:39→07:00)
[2017-03-21 10:54] VITALS: O2SAT 97
--- NOTE | 2017-03-21 14:01 | PN ---
DATE: 03/21/2017 SUBJECTIVE: The patient is an 81-year-old, seen and examined, complaining of increased frequency of urination and also complains as if she need to have a bowel movement. Denies any nausea or vomiting. PHYSICAL EXAMINATION VITAL SIGNS: She is afebrile, pulse 63, respirations 18, blood pressure is 152/96. LUNGS: Bilateral fair airflow. No rhonchi or crackle. HEART: S1, S2 audible. No murmur. ABDOMEN: Soft and nontender. No rebound, no guarding. HEAD AND NECK: She has atraumatic face, but secondary to fall, she has left periorbital ecchymosis and left forehead hematoma. EXTREMITIES: Bilateral leg, no edema. LABORATORY DATA: There is no new lab available today, we will order one for tomorrow. ASSESSMENT AND PLAN: 1. Status post fall. 2. Left periorbital ecchymosis. 3. Left forehead hematoma. 4. History of seizure disorder. PLAN: I will order for UA and culture. Stool for C. diff has been checked, is negative. I will request Dr. Wiggins to evaluate the patient since she complained of proctitis, reevaluate the patient in the a.m., discharge plan. Rojelio Mortensen MD
[2017-03-21 16:47] LABS: BASO # 0.01 K/mm3 (0.0-2.0); BASO % 0.1 % (0.0-3.0); GRAN # 9.39 (1.4-6.5); GRAN % 86.4 % (50.0-68.0); HEMOGLOBIN 12.6 gm/dL (12.0-16.0); LYMPH # 1.1 (1.2-3.4); LYMPH % 10.4 % (22.0-35.0); MEAN CELL VOLUME 86.4 fL (80.0-105.0); MEAN CORPUSCULAR HEMOGLOBIN 29.4 pg (25.0-35.0); MEAN CORPUSCULAR HGB CONC 34.1 g/dl (31.0-37.0); MEAN PLATELET VOLUME 10.2 fl (7.0-11.0); MONO # 0.3 (0.1-0.6); MONO % 3.1 % (1.0-6.0); PLATELET COUNT 284 10^3/uL (120.0-450.0); RBC 4.28 10^6/uL (3.5-6.1); RED CELL DISTRIBUTION WIDTH 15.3 % (11.5-14.5); WHITE BLOOD COUNT 10.9 10^3/ul (4.5-11.0)
[2017-03-21 16:53] LABS: CALCIUM 8.9 mg/dL (8.4-10.5)
[2017-03-21 17:14] VITALS: RESP 15
[2017-03-21] MEDS ORDERED: Dextrose 5%/0.45% NS 1,000 ML IV SCH (18:30)
--- NOTE | 2017-03-22 02:37 | CON ---
GASTROENTEROLOGY CONSULTATION Seen and examined at the bedside this afternoon. The chart was reviewed. REASON FOR CONSULTATION: Hepatitis. HISTORY OF PRESENT ILLNESS: This is an 81-year-old female with a past medical history of chronic myeloid leukemia, hypertension and history of seizure was brought to the hospital status post fall. The patient had difficulty in ambulation secondary to complaints of hip pain. The patient is seen in TCU. She is noted to have a facial injury with ecchymotic area on her left forehead periorbital area. She complains of increased loose stools. She reports that normally at home she has at times loose bowel movements, but she noticed that she has had increased loose bowel movements. She denies any nausea, vomiting. No abdominal pain. Reports that her appetite is good. No complaints of any dysphagia. She denies having colonoscopy or endoscopy. Denies any rectal pain or any melena, bright red blood pre rectum. PAST MEDICAL HISTORY: As stated above, she has chronic myeloid leukemia, hypertension and history of seizure disorder. PAST SURGICAL HISTORY: Denies any cardiac or abdominal surgery. FAMILY HISTORY: Denies. SOCIAL HISTORY: Denies smoking, ETOH or substance abuse. MEDICATIONS: Reviewed as per OCT. ALLERGIES: NO KNOWN DRUG ALLERGIES. REVIEW OF SYSTEMS: Systems reviewed with positive findings. See HPI. 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 No other fracture deformities observed, extensive tissue swelling. No enlarged lymph nodes. PHYSICAL EXAMINATION: VITAL SIGNS: Temperature is 98, blood pressure 140/49, pulse 60, respirations 15 and 97% on room air. HEENT: Sclera is anicteric. NECK: Supple. CARDIAC: S1 and S2. LUNGS: With decreased breath sounds, but good air entry. No rales or wheeze. ABDOMEN: With bowel sounds. Soft, nondistended and nontender on palpation. No rebound, guarding or organomegaly. EXTREMITIES: Positive pulses. No edema. Lower extremities has no edema. NEUROLOGIC: Awake, alert and oriented. Her face has left periorbital ecchymosis with left forehead hematoma. LABORATORY DATA: WBC is 10.9, H and H is 12.6 and 37.6 and platelets is 284. Sodium 133, potassium 5.0, BUN is 51, creatinine is 1.2. Last LFTs is from 03/16/2017 and that was normal. ASSESSMENT: The patient has status post fall. She has left forehead hematoma, left periorbital ecchymosis, history of chronic myeloid leukemia, compliant of diarrhea. The patient did have stool for Clostridium difficile and that was negative. Denies any postprandial diarrhea and consider CT scan of the abdomen and pelvis. Request for celiac disease panel. Thank you for this consult and for allowing us to participate in your patient's care. We will make further recommendation based upon the patient's clinical course. The patient seen and case discussed with Dr. Wiggins. JIA Hernandez
--- NOTE | 2017-03-22 06:52 | PCM.RRTMUL ---
<Tri Kendrick - Last Filed: 03/22/17 07:32> HOUSE PAINTING INSTRUCTOR Nurse Assessment - Situation HOUSE PAINTING INSTRUCTOR Responder Arrival Time:: 06:39 Location:: TCU Room Number:: 322-02 HOUSE PAINTING INSTRUCTOR Reason for Call: Respiratory Distress, Change in Mental Status, Looks Sicker HOUSE PAINTING INSTRUCTOR Called By: RN - IV IV Inserted during HOUSE PAINTING INSTRUCTOR?: Yes IV Fluids Initiated During HOUSE PAINTING INSTRUCTOR?: NS @ 75cc/hr - Respiratory Oxygen Delivery Method:: Nasal Cannula (5L) Received Nebulizer Treatments:: No Was the Patient Ventilated with Bag/Mask 100% O2?: No Secretions Suctioned?: No Was the Patient Intubated?: No Was the Patient Placed on a Ventilator?: No - Medication Medications Administered During HOUSE PAINTING INSTRUCTOR :: Hydralazine 10mg IVP - Diagnostic Test Ordered EKG:: Yes Chest X-Ray:: Yes CT Scan:: Yes (Head w/o contrast) - Stat Labs Ordered HOUSE PAINTING INSTRUCTOR Stat Labs Ordered:: CBC (Mag, Phos, Urinalysis, Urine cx, D Dimer), BMP, PT/ PTT, TROPONIN, LACTIC ACID, BLOOD C&S X2, ABG HOUSE PAINTING INSTRUCTOR Other Labs Ordered:: D Dimer, urine cx, U/A CPR started during HOUSE PAINTING INSTRUCTOR?: No - Vital Signs Blood Pressure:: 215/164 Pulse Rate:: 115 Temperature:: 100.5 F Oxygen Saturation:: 98 (on 5L) - [place] Coma Scale Coma Scale Verbal:: Confused/able to answer - Sepsis Screen Part 1 Sepsis Screen Part 1: Temperature over 100.6F - Time HOUSE PAINTING INSTRUCTOR Ended Time HOUSE PAINTING INSTRUCTOR Ended:: 07:00 - Vital Signs at end of HOUSE PAINTING INSTRUCTOR Blood Pressure:: 178/157 (BP was rechecked after patient recieved Hydralazine, noted to be 77 systolic, rechecked in ER 110 SBP) Pulse Rate:: 112 O2 Sat by Pulse Oximetry:: 97 (On 5L) - Recommendations 5) HOUSE PAINTING INSTRUCTOR Level of Care Recommendations: Discharge to Emergency Room 6) Notifications: Attending Physician <Oly Umana - Last Filed: 03/22/17 11:35> Attending/Attestation - Attestation I have personally seen and examined this patient.: Yes I have fully participated in the care of the patient.: Yes I have reviewed all pertinent clinical information, including history, physical exam and plan: Yes Notes (Text): 08/04/17 11:34 Agree with medical biller/coder in management of Ms Monacci.
--- NOTE | 2017-03-22 06:58 | CP.PCM.PN ---
Subjective - Date & Time of Evaluation Date of Evaluation: 03/22/17 Time of Evaluation: 06:57 - Subjective Subjective: Draft. SHIP SCALER Spoke to . Placed call to Objective - Vital Signs/Intake and Output Vital Signs (last 24 hours): Temp Pulse Resp BP Pulse Ox 98 F 68 15 140/49 L 97 03/22/17 06:52 03/22/17 06:52 03/22/17 06:52 03/22/17 06:52 03/21/17 10:00 - Medications Medications: Current Medications Acetaminophen (Tylenol 325mg Tab) 650 mg PO Q4H PRN; Protocol PRN Reason: Fever >100.4 F Aspirin (Ecotrin) 81 mg PO 0800 ABIMAEL PRN Reason: Protocol Last Admin: 03/21/17 08:28 Dose: 81 mg Dextrose/Sodium Chloride (Dextrose 5%/0.45% Ns 1000 Ml) 1,000 mls @ 80 mls/hr IV .[id number] ABIMAEL PRN Reason: Protocol Last Admin: 03/21/17 18:32 Dose: 80 mls/hr Levetiracetam (Keppra) 500 mg PO BID ABIMAEL PRN Reason: Protocol Last Admin: 03/21/17 18:28 Dose: 500 mg Metoprolol Succinate (Toprol Xl) 25 mg PO BRK ABIMAEL PRN Reason: Protocol Last Admin: 03/21/17 07:00 Dose: 25 mg - Labs Labs: 03/21/17 16:35 03/21/17 16:35
[2017-03-22 07:04] LABS: ARTERIAL BLOOD GAS HCO3 12.8 mmol/L (21-28); ARTERIAL BLOOD GAS O2 SAT 99.7 % (95-98); ARTERIAL BLOOD GAS PH 7.46 (7.35-7.45); ARTERIAL BLOOD GAS TCO2 13.4 mmol.L (22-28)
[2017-03-22 07:07] VITALS: BP 215/164; PULSE 115; TEMP 100.5
[2017-03-22 07:09] LABS: ARTERIAL BLOOD GAS PCO2 18 mm/Hg (35-45)
[2017-03-22 07:37] LABS: GRAN % 90.8 % (50.0-68.0); HEMOGLOBIN 11.5 gm/dL (12.0-16.0); LYMPH # 0.6 (1.2-3.4); LYMPH % 8.5 % (22.0-35.0); MEAN CORPUSCULAR HEMOGLOBIN 28.8 pg (25.0-35.0); MEAN CORPUSCULAR HGB CONC 33.1 g/dl (31.0-37.0); MEAN PLATELET VOLUME 10.5 fl (7.0-11.0); MONO # 0.1 (0.1-0.6); MONO % 0.7 % (1.0-6.0); PLATELET COUNT 345 10^3/uL (120.0-450.0); RBC 3.99 10^6/uL (3.5-6.1); RED CELL DISTRIBUTION WIDTH 15.2 % (11.5-14.5); WHITE BLOOD COUNT 6.8 10^3/ul (4.5-11.0)
--- NOTE | 2017-03-22 07:51 | RAD ---
HISTORY: sob COMPARISON: 03/14/2017. FINDINGS: LUNGS: There are prominent interstitial markings in the lungs. There is bibasilar atelectasis/ scarring. No focal consolidation. PLEURA: No significant pleural effusion identified, no pneumothorax apparent. CARDIOVASCULAR: The heart is normal in size. Atherosclerotic aortic arch calcifications are present. OSSEOUS STRUCTURES: No significant abnormalities. VISUALIZED UPPER ABDOMEN: Normal. OTHER FINDINGS: None. IMPRESSION: No active pulmonary disease.
[2017-03-22 07:58] LABS: ALB/GLOB RATIO 0.9 (1.1-1.8); ALBUMIN 3.2 g/dL (3.0-4.8); ALT/SGPT 18 U/L (7-56); AST/SGOT 16 U/L (15-39); BLOOD UREA NITROGEN 45 mg/dL (7-21); CALCIUM 7.8 mg/dL (8.4-10.5); GFR AFRICAN-AMERICAN 57; GFR NON-AFRICAN AMERICAN 47; MAGNESIUM 1.7 mg/dL (1.7-2.2)
[2017-03-22 08:09] LABS: TROPONIN I < 0.01 ng/mL
[2017-03-22 08:24] LABS: INR 1.06 (0.93-1.08); PARTIAL THROMBOPLASTIN TIME 28.2 Seconds (23.7-30.8); PROTHROMBIN TIME 11.4 Seconds (9.9-11.8)
[2017-03-22 08:25] LABS: D DIMER 5.77 mg/L FEU (0-0.50)
--- NOTE | 2017-03-22 08:35 | PN ---
ORTHOPEDIC REPORT DATE: 03/21/2017 HISTORY OF PRESENT ILLNESS: She is an 81-year-old female. I was asked to see the patient for left periorbital hematoma on the forehead just above the left eye not draining and I have been watching it over the last several days, it is resolving spontaneously. I would not do evacuation of the hematoma, it could only possibly lead to infection or further irritation and if it does drain, I just put a bandage on it and does it may spontaneously drain and then we have to put a Band-Aid on it, but the longer way to go without opening it be better because then it will be smaller if it ever does drain. She should just be protective from herself and trauma to the left forehead. This all started when she was admitted to the hospital with facial trauma approximately 03/14/2017, but she is improving as well as the left pelvic fracture is improving and stronger. She looks stronger everyday, but I would not drain that left forehead hematoma just she had is like a blood blister that has been getting smaller. It used to be like 4 cm, now it is down to 2 cm. Darryl Garcia DO
--- NOTE | 2017-03-22 09:22 | CARD ---
APPROVED REPORT EKG Measurement Heart [id number] <Conclusion> Sinus tachycardia APC's and PVC's QS in V1, possible septal [place], age unknown STTW changes c/w ischemia
== END 2017-03-22 07:26 | disposition short-term general hospital (02) | DRG 304 ==
LOC: TRCU 23:05
PROVIDERS: ADMIT Internal Medicine; ATTEND Internal Medicine
PROC: F07Z9FZ Gait Training/Functional Ambulation Treatment using Assistive, Adaptive, Supportive or Protective Equipment (ICD-10-PCS; principal; 2017-03-19)
PROC: F07M6ZZ Therapeutic Exercise Treatment of Musculoskeletal System - Whole Body (ICD-10-PCS; 2017-03-19)
PROC: F08Z1ZZ Dressing Techniques Treatment (ICD-10-PCS; 2017-03-19)
PROC: F08Z0ZZ Bathing/Showering Techniques Treatment (ICD-10-PCS; 2017-03-19)
PROC: F08Z3ZZ Feeding/Eating Treatment (ICD-10-PCS; 2017-03-19)
PROC: F08Z4ZZ Home Management Treatment (ICD-10-PCS; 2017-03-19)
DX: I16.1 Hypertensive emergency (principal); J18.9 Pneumonia, unspecified organism; S32.592A Other specified fracture of left pubis, initial encounter for closed fracture; G40.909 Epilepsy, unspecified, not intractable, without status epilepticus; K75.9 Inflammatory liver disease, unspecified; D46.9 Myelodysplastic syndrome, unspecified; M61.9 Calcification and ossification of muscle, unspecified; W01.0XXA Fall on same level from slipping, tripping and stumbling without subsequent striking against object, initial encounter; R09.02 Hypoxemia; I10 Essential (primary) hypertension; Z87.81 Personal history of (healed) traumatic fracture; Z85.6 Personal history of leukemia; S00.12XA Contusion of left eyelid and periocular area, initial encounter; S00.83XA Contusion of other part of head, initial encounter; Y92.009 Unspecified place in unspecified non-institutional (private) residence as the place of occurrence of the external cause; S00.82XA Blister (nonthermal) of other part of head, initial encounter

== ENCOUNTER 2017-03-22 07:25 | Inpatient (IN) | payer MEDICARE, OTHER ==
--- NOTE | 2017-03-22 08:01 | ED PDOC ---
Arrival/HPI - General Chief Complaint: Altered Mental Status Time Seen by Provider: 03/22/17 07:31 Historian: Other (TCU staff) - Critical Care Critical Care Minutes: 30 minutes - History of Present Illness Narrative History of Present Illness (Text): 03/22/17 07:56 A 81 year old female sent down to the emergency department from TCU for altered mental status. A rapid response was called this morning. As per TCU nurse, patient has been acting "strange" since yesterday. Patient had a septic work up and CT imaging done prior to arrival. HPI and ROS limited due to patients state. Patient was recently admitted to the hospital for a pelvic fracture after a syncopal episode and fall 1 week ago. PMD: Dr. Mortensen Time/Duration: Prior to Arrival Symptom Course: Unchanged Quality: Other Context: Other Associated Symptoms (Text): 03/22/17 08:49 Nonverbal and unable to give any history. Patient does respond to painful stimuli. Past Medical History - Provider Review Nursing Documentation Reviewed: Yes - Tetanus Immunization Tetanus Immunization: Unknown - Cardiac Hx Cardiac Disorders: Yes Hx Hypertension: Yes - Pulmonary Hx Respiratory Disorders: No - Neurological Hx Neurological Disorder: Yes Hx Seizures: Yes - HEENT Hx HEENT Disorder: Yes (hard of hearing ''left ear'') Hx Cataracts: Yes (b/l sx) Other/Comment: left ear - hard of hearing - Renal Hx Renal Disorder: No (denies) - Endocrine/Metabolic Hx Endocrine Disorders: Yes Hx Hypothyroidism: Yes - Hematological/Oncological Hx Blood Disorders: Yes (blood transfusion) Hx AIDS: Yes Hx Cancer: Yes (Leukemia) Hx Chemotherapy: No (Refuses) - Integumentary Hx Dermatological Disorder: Yes - Musculoskeletal/Rheumatological Hx Musculoskeletal Disorders: Yes Hx Arthritis: Yes Hx Falls: Yes Hx Fractures: Yes - Gastrointestinal Hx Gastrointestinal Disorders: Yes Hx Gall Bladder Disease: Yes - Genitourinary/Gynecological Hx Genitourinary Disorders: No (denies) - Psychiatric Hx Psychophysiologic Disorder: No (denies) Hx Depression: No Hx Emotional Abuse: No Hx Physical Abuse: No Hx Substance Use: No - Surgical History Hx Cholecystectomy: Yes - Anesthesia Hx Anesthesia: No Hx Anesthesia Reactions: No ("had a hard time waking me up.") - Suicidal Assessment Feels Threatened In Home Enviroment: No Family/Social History - Physician Review Nursing Documentation Reviewed: Yes Family/Social History: No Known Family HX Smoking Status: Never Smoked Hx Alcohol Use: No Hx Substance Use: No Allergies/Home Meds Allergies/Adverse Reactions: Allergies No Known Allergies Allergy (Verified 03/22/17 07:36) Home Medications: Home Meds Medication Instructions Recorded Confirmed Metoprolol Tartrate [Metoprolol 25 mg PO DAILY 05/17/14 03/22/17 Tartrate] Aspirin [Ecotrin] 81 mg PO DAILY 03/14/17 03/22/17 levETIRAcetam [Keppra] 500 mg PO BID 03/14/17 03/22/17 Review of Systems - Review of Systems Systems not reviewed;Unavailable: Altered Mental Status Physical Exam Vital Signs Reviewed: Yes Vital Signs Temp Pulse Resp BP Pulse Ox 03/22/17 08:58 107 H 30 H 95/50 L 97 03/22/17 08:43 108 H 24 122/60 96 03/22/17 08:30 100.5 F H 03/22/17 08:28 97 H 28 H 89/44 L 96 03/22/17 07:50 113 H 16 110/45 L 97 Blood Pressure: Hypotensive Pulse: Tachycardic Respiratory Rate: Normal Appearance: Positive for: Ill-Appearing (Chroncially ill-appearing), Cachectic, Other (thin) - Systems Exam Head: Present: Ecchymosis (Old large ecchymotic area over left forehead, face and jaw) Pupils: Present: PERRL Conjunctiva: Present: Normal Mouth: Present: Moist Mucous Membranes Pharnyx: No: ERYTHEMA, EXUDATE, TONSILS ENLARGED Respiratory/Chest: Present: Clear to Auscultation, Good Air Exchange. No: Respiratory Distress, Accessory Muscle Use Cardiovascular: Present: Normal S1, S2, Irregular Rhythm, Tachycardic. No: Murmurs Abdomen: Present: Distention, Normal Bowel Sounds. No: Tenderness, Peritoneal Signs, Rebound, Guarding Upper Extremity: Present: Normal Inspection. No: Cyanosis, Edema Lower Extremity: Present: Normal Inspection. No: Edema Skin: Present: Warm, Dry, Pale. No: Rashes Medical Decision Making ED Course and Treatment: 03/22/17 07:56 Impression: A 81 year old female sent down after rapid response called in TCU for altered mental status. Plan: -- EKG -- Urine culture and Urinalysis -- Reassess and disposition Progress Notes: Notes and results from prior charts reviewed. While in TCU patient received Zofran and Hydralazine but no antibiotics. 03/22/17 08:[address] hansen catheter was unsuccessful. Required Additional MD skill required, hansen catheter placement was successful. 03/22/17 08:[address] Pereira, who states he will evaluate patient at bedside. 03/22/17 08:49 EKG shows normal sinus rhythm rate approximately 115 with PACs and PVCs and nonspecific ST and T-wave changes with no acute changes 03/22/17 08:50 Blood sugar from the lab was 574. Fingerstick in the department is less than 100 , done twice. Therefore insulin was not given. Patient is received 30 mL per KG bolus of saline along with Rocephin and gentamicin for urinary tract infection with sepsis 03/22/17 09:26 Discussed with who acccept to her service - Lab Interpretations Lab Results: Lab Results 03/22/17 08:30: Urine Color Red, Urine Appearance Turbid, Urine pH 8.5, Ur Specific [place] 1.010, Urine Protein >=300 H, Urine Glucose (UA) 100 H, Urine Ketones Trace H, Urine Blood Large H, Urine Nitrate Positive H, Urine Bilirubin Moderate H, Urine Urobilinogen 1.0 H, Ur Leukocyte Esterase Moderate H, Urine RBC Tntc, Urine WBC Tntc, Urine Bacteria Many - RAD Interpretation Radiology Orders: Chest 1 view shows no infiltrate effusion or cardiomegaly Bag Sewer: ED Physician - Medication Orders Current Medication Orders: Sodium Chloride (Sodium Chloride 0.9%) 2,000 mls @ 500 mls/hr IV ONCE ONE Stop: 03/22/17 12:09 Last Admin: 03/22/17 08:49 Dose: 500 mls/hr Discontinued Medications Ceftriaxone Sodium (Rocephin 1 Gram Ivpb) 1 gm in 100 mls @ 200 mls/hr IVPB STAT STA PRN Reason: Protocol Stop: 03/22/17 08:46 Last Admin: 03/22/17 08:50 Dose: 200 mls/hr Gentamicin Sulfate 60 mg/ (Sodium Chloride) 51.5 mls @ 100 mls/hr IVPB STAT STA PRN Reason: Protocol Stop: 03/22/17 09:01 Insulin Human Regular (Humulin R) 10 units IV ONCE STA Stop: 03/22/17 08:12 Last Admin: 03/22/17 08:50 Dose: - Scribe Statement The provider has reviewed the documentation as recorded by the Raminibpatricio Hu Provider Scribe Attestation: All medical record entries made by the Scribe were at my direction and personally dictated by me. I have reviewed the chart and agree that the record accurately reflects my personal performance of the history, physical exam, medical decision making, and the department course for this patient. I have also personally directed, reviewed, and agree with the discharge instructions and disposition. Disposition/Present on Arrival - Present on Arrival Any Indicators Present on Arrival: No History of DVT/PE: No History of Uncontrolled Diabetes: No Urinary Catheter: No History of Decub. Ulcer: No History Surgical Site Infection Following: None - Disposition Have Diagnosis and Disposition been Completed?: Yes Diagnosis: Sepsis, Urinary tract infection, Fever, Hypotension, Altered mental status, Weakness, Dehydration Disposition: HOSPITALIZED Disposition Time: 09:28 Patient Plan: Admission, ICU Condition: CRITICAL Discharge Instructions (ExitCare): Sepsis (ED), Weakness (ED) Referrals: [employer] [facility] Michael Rerodriguez, [Non-Staff] - Follow up with primary Forms: [employer] ([place])
[2017-03-22] MEDS ORDERED: Sodium Chloride 0.9% 2,000 ML IV ONE (08:10)
[2017-03-22] MEDS ORDERED: Insulin Regular 1 UNITS/0.01 ML ML IV STA (08:11)
[2017-03-22] MEDS ORDERED: cefTRIAXone 1 gm 1 GM/100 ML BAG IVPB STA (08:17)
[2017-03-22] MEDS ORDERED: Gentamicin 60mg/50ml NS 60 MG/50 ML BAG IVPB STA (08:19)
[2017-03-22 08:44] LABS: PH,URINE 8.5 (4.7-8.0); URINE APPEARANCE TURBID (CLEAR); URINE BACTERIA MANY (NEG); URINE BILIRUBIN MODERATE (NEGATIVE); URINE BLOOD LARGE (NEGATIVE); URINE COLOR RED (YELLOW); URINE GLUCOSE (UA) 100 mg/dL (NEGATIVE); URINE LEUKOCYTE ESTERASE MODERATE Leu/uL (NEGATIVE); URINE NITRATE POSITIVE (NEGATIVE); URINE PROTEIN >=300 mg/dL (<30 mg/dL); URINE RBC TNTC /hpf (0-2); URINE WBC TNTC /hpf (0-6)
[2017-03-22] MEDS ORDERED: Sodium Chloride 0.9% 1,000 ML IV STA (10:25)
[2017-03-22 12:04] LABS: ARTERIAL BLOOD GAS HCO3 16.4 mmol/L (21-28); ARTERIAL BLOOD GAS O2 SAT 99.7 % (95-98); ARTERIAL BLOOD GAS PCO2 21 mm/Hg (35-45)
--- NOTE | 2017-03-22 12:55 | CP.PCM.CON ---
History of Present Illness - History of Present Illness History of Present Illness: Palliative consult requested by Dr Alon Mortensen notified Reason: Goals of care/ advance care planning 81 year old female who was sent to ED for TRCU with altered mental status. Patient was recently admitted to acute care after suffering a syncopal episode and fall resulting in pelvic fracture. PMHx: arthritis, leukemia, anemia,frequent falls, hard of hearing Social History: Non smoker, no alcohol or drug use. Lives alone. Family History: Non contributory. Advance Care Planning:The patient does not have an Advanced Directive Review of Systems: As per HPI, the patient is altered mental status unable. Past Patient History - Tetanus Immunizations Tetanus Immunization: Unknown - Past Social History Smoking Status: Never Smoked - CARDIAC Hx Cardiac Disorders: Yes Hx Hypertension: Yes - PULMONARY Hx Respiratory Disorders: No - NEUROLOGICAL Hx Neurological Disorder: Yes Hx Seizures: Yes - HEENT Hx HEENT Problems: Yes (hard of hearing ''left ear'') Hx Cataracts: Yes (b/l sx) Other/Comment: left ear - hard of hearing - RENAL Hx Chronic Kidney Disease: No (denies) - ENDOCRINE/METABOLIC Hx Endocrine Disorders: Yes Hx Hypothyroidism: Yes - HEMATOLOGICAL/ONCOLOGICAL Hx Blood Disorders: Yes (blood transfusion) Hx AIDS: Yes Hx Cancer: Yes (Leukemia) Hx Chemotherapy: No (Refuses) - INTEGUMENTARY Hx Dermatological Problems: Yes - MUSCULOSKELETAL/RHEUMATOLOGICAL Hx Musculoskeletal Disorders: Yes Hx Arthritis: Yes Hx Falls: Yes Hx Fractures: Yes - GASTROINTESTINAL Hx Gastrointestinal Disorders: Yes Hx Gall Bladder Disease: Yes - GENITOURINARY/GYNECOLOGICAL Hx Genitourinary Disorders: No (denies) - PSYCHIATRIC Hx Psychophysiologic Disorder: No (denies) Hx Depression: No Hx Emotional Abuse: No Hx Physical Abuse: No Hx Substance Use: No - SURGICAL HISTORY Hx Cholecystectomy: Yes - ANESTHESIA Hx Anesthesia: No Hx Anesthesia Reactions: No ("had a hard time waking me up.") Meds Allergies/Adverse Reactions: Allergies Allergy/AdvReac Type Severity Reaction Status Date / Time No Known Allergies Allergy Verified 03/22/17 12:53 - Medications Medications: Current Medications Pantoprazole Sodium (Protonix Inj) 40 mg IVP DAILY [facility] Last Admin: 03/22/17 10:59 Dose: 40 mg Physical Exam - Head Exam Head Exam: NORMOCEPHALIC Additional comments: ecchymosis entire left side of face and neck - Eye Exam Eye Exam: Normal appearance, PERRL - ENT Exam ENT Exam: Mucous Membranes Dry, Normal Oropharynx - Respiratory Exam Respiratory Exam: Decreased Breath Sounds, NORMAL BREATHING PATTERN - Cardiovascular Exam Cardiovascular Exam: Tachycardia, +S1, +S2 - GI/Abdominal Exam GI & Abdominal Exam: Normal Bowel Sounds, Soft - Extremities Exam Extremities exam: Positive for: pedal pulses present - Back Exam Back exam: NORMAL INSPECTION - Neurological Exam Neurological exam: Altered - Skin Skin Exam: Dry, Pallor - Additional Findings Additional findings: Palliative performance rating 20% Results - Vital Signs Recent Vital Signs: Last Vital Signs Temp 100.5 F H 03/22/17 08:30 Pulse 108 H 03/22/17 10:30 Resp 24 03/22/17 10:30 BP 89/55 L 03/22/17 10:30 Pulse Ox 100 03/22/17 10:30 - Labs Labs: Laboratory Results - last 24 hr 03/22/17 03/22/17 11:24 11:50 pCO2 21 L pO2 162.0 H HCO3 16.4 L ABG pH 7.50 H ABG Total CO2 17.0 L ABG O2 Saturation 99.7 H ABG Base Excess -4.6 L ABG Potassium 3.5 L Sodium 139.0 Chloride 116.0 H Glucose 108 H Lactate 1.3 FiO2 36.0 POC Glucose (mg/dL) 126 H Arterial Blood Potassium 3.5 L Assessment & Plan - Assessment and Plan (Free Text) Assessment: 81 year old female with history of syncope, pelvic fracture who was admitted to ICU with UTI, sepsis, altered mental status and dehydration. The patient is extremely lethargic, altered, unable to answer simple questions. I attempted to reach patients sister, Janett Lindsey. Message left on phone. A while later the patient's brother- in law, Elton Lindsey returned my call. He is unsure if his sister in law had an Advanced Directive. He explained that his , the patients sister is not in good health. I indicated that his sister in law Gabriella was critically ill and that next of kin may want to visit. I also explained the importance of discussing goals of care with family. Benefits and burdens of aggressive resuscitation explained. Mr. Lindsey indicated that he would tell his of Gabriella's situation. He stated that the patient should remain a full code at this time. He will they to visit later today. Time spent in goals of care and advance care planning discussion with family, 20 minutes Plan: Advance care planning Palliative support
[2017-03-22] MEDS ORDERED: Sodium Chloride 0.9% 2,000 ML IV STA (13:15)
[2017-03-22] MEDS ORDERED: Pneumococcal 23-Valent Vaccine IM ONE (14:03)
[2017-03-22 14:04] VITALS: BMI 18.3
[2017-03-22] MEDS ORDERED: Vancomycin 1gm in NS 250ml 1 GM/250 ML BAG IVPB STA (14:24)
[2017-03-22 14:38] LABS: ALB/GLOB RATIO 0.8 (1.1-1.8); ALBUMIN 2.4 g/dL (3.0-4.8); ALT/SGPT 18 U/L (7-56); AST/SGOT 15 U/L (15-39); BLOOD UREA NITROGEN 37 mg/dL (7-21); CALCIUM 7.4 mg/dL (8.4-10.5); GFR AFRICAN-AMERICAN > 60; GFR NON-AFRICAN AMERICAN 53
[2017-03-22 14:49] LABS: TROPONIN I 0.02 ng/mL
--- NOTE | 2017-03-22 14:52 | RAD ---
HISTORY: rule out pneumonia COMPARISON: 03/22/2017 at 6:59 a.m.. FINDINGS: LUNGS: There is worsening pulmonary venous congestion and development of interstitial pulmonary edema. There is bibasilar airspace disease. PLEURA: No significant pleural effusion identified, no pneumothorax apparent. CARDIOVASCULAR: There is mild cardiomegaly with prominent central vasculature. OSSEOUS STRUCTURES: No significant abnormalities. VISUALIZED UPPER ABDOMEN: Normal. OTHER FINDINGS: None. IMPRESSION: 1. Worsening pulmonary venous congestion and interval development of interstitial pulmonary edema. 2. Bibasilar airspace disease could represent atelectasis or pneumonia. Follow-up is advised.
[2017-03-22] MEDS: Meropenem 1g/NS 100mL IVPB 1 GM/100 ML PIGGYBACK IVPB SCH (15:01)
--- NOTE | 2017-03-22 16:27 | CP.PCM.CON ---
<Heidy Jj - Last Filed: 03/22/17 15:57> History of Present Illness - History of Present Illness History of Present Illness: 81 F with PMHx of HTN and seizure disorder sent to the ED from the TCU on account of becoming altered. Pt was recently admitted after enduring a syncopal episode, falling, and suffering a pelvic fracture and left orbital hematoma. Pt was found to be disorientated and difficult to arouse as per the nursing staff at which point TRANSACTION COORDINATOR was called. Patient had a septic work up and CT imaging done prior to arrival. HPI and ROS limited due to patients state. Chart Reviewed PMHx: HTN, seizure disorder, leukemia, hypothyroidism, ?HIV PSHx: Cataracts, cholecystectomy FamHx; Noncontributory SHx: Denied Meds: MAR Reviewed Allergies: NKDA Review of Systems - Review of Systems Systems not reviewed;Unavailable: Altered Mental Status Past Patient History - Tetanus Immunizations Tetanus Immunization: Unknown - Past Social History Smoking Status: Never Smoked - CARDIAC Hx Cardiac Disorders: Yes Hx Hypertension: Yes - PULMONARY Hx Respiratory Disorders: No - NEUROLOGICAL Hx Neurological Disorder: Yes Hx Seizures: Yes - HEENT Hx HEENT Problems: Yes (hard of hearing ''left ear'') Hx Cataracts: Yes (b/l sx) Other/Comment: left ear - hard of hearing - RENAL Hx Chronic Kidney Disease: No (denies) - ENDOCRINE/METABOLIC Hx Endocrine Disorders: Yes Hx Hypothyroidism: Yes - HEMATOLOGICAL/ONCOLOGICAL Hx Blood Disorders: Yes (blood transfusion) Hx AIDS: Yes Hx Cancer: Yes (Leukemia) Hx Chemotherapy: No (Refuses) - INTEGUMENTARY Hx Dermatological Problems: Yes - MUSCULOSKELETAL/RHEUMATOLOGICAL Hx Musculoskeletal Disorders: Yes Hx Arthritis: Yes Hx Falls: Yes Hx Fractures: Yes - GASTROINTESTINAL Hx Gastrointestinal Disorders: Yes Hx Gall Bladder Disease: Yes - GENITOURINARY/GYNECOLOGICAL Hx Genitourinary Disorders: No (denies) - PSYCHIATRIC Hx Psychophysiologic Disorder: No (denies) Hx Depression: No Hx Emotional Abuse: No Hx Physical Abuse: No Hx Substance Use: No - SURGICAL HISTORY Hx Cholecystectomy: Yes - ANESTHESIA Hx Anesthesia: No Hx Anesthesia Reactions: No ("had a hard time waking me up.") Meds Allergies/Adverse Reactions: Allergies Allergy/AdvReac Type Severity Reaction Status Date / Time No Known Allergies Allergy Verified 03/22/17 12:53 - Medications Medications: Current Medications Aspirin (Aspirin Chewable) 81 mg PO DAILY [facility] Atorvastatin Calcium (Lipitor) 10 mg PO DIN [facility] Meropenem 1g/NS 100mL IVPB (Meropenem 1g/Ns 100ml Ivpb) 1 gm in 100 mls @ 100 mls/hr IVPB Q12 [facility] PRN Reason: Protocol Stop: 03/29/17 14:24 Last Admin: 03/22/17 15:01 Dose: 100 mls/hr Pantoprazole Sodium (Protonix Inj) 40 mg IVP DAILY [facility] Last Admin: 03/22/17 10:59 Dose: 40 mg Physical Exam - Constitutional Appears: Confused - Head Exam Additional comments: left orbital hematoma eccymosis - Eye Exam Eye Exam: EOMI, Normal appearance, PERRL Pupil Exam: NORMAL ACCOMODATION, PERRL - ENT Exam ENT Exam: Mucous Membranes Dry - Respiratory Exam Respiratory Exam: Clear to Auscultation Bilateral, NORMAL BREATHING PATTERN - Cardiovascular Exam Cardiovascular Exam: REGULAR RHYTHM, +S1, +S2 - GI/Abdominal Exam GI & Abdominal Exam: Normal Bowel Sounds, Soft. absent: Tenderness - Extremities Exam Extremities exam: Positive for: normal inspection. Negative for: pedal edema, tenderness - Neurological Exam Neurological exam: Altered - Psychiatric Exam Psychiatric exam: Flat Affect - Skin Skin Exam: Dry, Intact, Normal Color, Warm Results - Vital Signs Recent Vital Signs: Last Vital Signs Temp 98.4 F 03/22/17 12:56 Pulse 109 H 03/22/17 14:36 Resp 18 03/22/17 13:20 BP 81/55 L 03/22/17 13:15 Pulse Ox 100 03/22/17 13:20 - Labs Result Diagrams: 03/22/17 14:20 Labs: Laboratory Results - last 24 hr 03/22/17 03/22/17 03/22/17 11:24 11:50 12:30 pCO2 21 L pO2 162.0 H HCO3 16.4 L ABG pH 7.50 H ABG Total CO2 17.0 L ABG O2 Saturation 99.7 H ABG Base Excess -4.6 L ABG Potassium 3.5 L Sodium 139.0 Chloride 116.0 H Glucose 108 H Lactate 1.3 FiO2 36.0 Potassium Carbon Dioxide Anion Gap BUN Creatinine Est GFR ( Amer) Est GFR (Non-Af Amer) POC Glucose (mg/dL) 126 H 128 H Random Glucose Calcium Total Bilirubin AST ALT Alkaline Phosphatase Troponin I Total Protein Albumin Globulin Albumin/Globulin Ratio Arterial Blood Potassium 3.5 L 03/22/17 03/22/17 03/22/17 14:20 14:39 15:44 pCO2 pO2 HCO3 ABG pH ABG Total CO2 ABG O2 Saturation ABG Base Excess ABG Potassium Sodium 138 Chloride 111 H Glucose Lactate FiO2 Potassium 4.0 Carbon Dioxide 18 L Anion Gap 13 BUN 37 H Creatinine 1.0 Est GFR ( Amer) > 60 Est GFR (Non-Af Amer) 53 POC Glucose (mg/dL) 122 H 220 H Random Glucose 97 Calcium 7.4 L Total Bilirubin 0.4 AST 15 ALT 18 Alkaline Phosphatase 62 Troponin I 0.02 D Total Protein 5.6 L Albumin 2.4 L Globulin 3.2 Albumin/Globulin Ratio 0.8 L Arterial Blood Potassium Assessment & Plan - Assessment and Plan (Free Text) Assessment: 81 F with PMHx of HTN, hypothyroidism, and seizure disorder admitted to ICU for AMS and sepsis 2/2 UTI. Neuro: - AMS, becoming more awake - moving extremities spontaneously - Neurochecks - continue to monitor Pulm: - satting well on NC - Maintain 02 sat >90% - HOB>30 - continue pulmonary toilet CVS: - Currently HD stable - Maintain MAP >65 - Fluid resuscitated, responded - hold anti- htn for now - continue to monitor GI: - NPO - GI ppx Renal: - renal fcn stable - Continue to monitor renal fcn - strict I&Os - monitor and supplement electrolytes as needed ID: - UTI, fu ucx - Merrem - ID Dr Warner following. - Afebrile, continue to monitor - fu pct - lactic acid downtrending Endo: Maintain bg 140-180 continue to monitor DVT and GI ppx reviewed Seen reviewed and discussed with attending <Randall HARE,Alon H - Last Filed: 03/22/17 17:23> Meds - Medications Medications: Current Medications Aspirin (Aspirin Chewable) 81 mg PO DAILY [facility] Atorvastatin Calcium (Lipitor) 10 mg PO DIN [facility] Meropenem 1g/NS 100mL IVPB (Meropenem 1g/Ns 100ml Ivpb) 1 gm in 100 mls @ 100 mls/hr IVPB Q12 [facility] PRN Reason: Protocol Stop: 03/29/17 14:24 Last Admin: 03/22/17 15:01 Dose: 100 mls/hr Pantoprazole Sodium (Protonix Inj) 40 mg IVP DAILY [facility] Last Admin: 03/22/17 10:59 Dose: 40 mg Results - Vital Signs Recent Vital Signs: Last Vital Signs Temp 98.4 F 03/22/17 12:56 Pulse 109 H 03/22/17 14:36 Resp 18 03/22/17 13:20 BP 81/55 L 03/22/17 13:15 Pulse Ox 100 03/22/17 13:20 - Labs Result Diagrams: 03/22/17 14:20 Labs: Laboratory Results - last 24 hr 03/22/17 03/22/17 03/22/17 11:24 11:50 12:30 pCO2 21 L pO2 162.0 H HCO3 16.4 L ABG pH 7.50 H ABG Total CO2 17.0 L ABG O2 Saturation 99.7 H ABG Base Excess -4.6 L ABG Potassium 3.5 L Sodium 139.0 Chloride 116.0 H Glucose 108 H Lactate 1.3 FiO2 36.0 Potassium Carbon Dioxide Anion Gap BUN Creatinine Est GFR ( Amer) Est GFR (Non-Af Amer) POC Glucose (mg/dL) 126 H 128 H Random Glucose Calcium Total Bilirubin AST ALT Alkaline Phosphatase Troponin I Total Protein Albumin Globulin Albumin/Globulin Ratio Arterial Blood Potassium 3.5 L 03/22/17 03/22/17 03/22/17 14:20 14:39 15:44 pCO2 pO2 HCO3 ABG pH ABG Total CO2 ABG O2 Saturation ABG Base Excess ABG Potassium Sodium 138 Chloride 111 H Glucose Lactate FiO2 Potassium 4.0 Carbon Dioxide 18 L Anion Gap 13 BUN 37 H Creatinine 1.0 Est GFR ( Amer) > 60 Est GFR (Non-Af Amer) 53 POC Glucose (mg/dL) 122 H 220 H Random Glucose 97 Calcium 7.4 L Total Bilirubin 0.4 AST 15 ALT 18 Alkaline Phosphatase 62 Troponin I 0.02 D Total Protein 5.6 L Albumin 2.4 L Globulin 3.2 Albumin/Globulin Ratio 0.8 L Arterial Blood Potassium Attending/Attestation - Attestation I have personally seen and examined this patient.: Yes I have fully participated in the care of the patient.: Yes I have reviewed all pertinent clinical information: Yes Notes (Text): 08/04/17 17:19 81 y/o W/ SIRS SEPSIS w/ UTI source AMS secondary to sepsis 4L NS given and ABX given, Meropenum extra dose given at 3pm. CX pending. SBP improved 90's. L Pelvic fx, no orthopedic intervention. DVT P SCD NPO for now . Will evaluate in the a.m Palliative care consulted cc time 55 min
[2017-03-22] MEDS ORDERED: Sodium Chloride 0.9% 1,000 ML IV SCH (18:15)
[2017-03-23] MEDS ORDERED: Sodium Chloride 0.9% 1,000 ML IV STA ×2 (00:06→03:06)
--- NOTE | 2017-03-23 00:12 | HP ---
The patient is 81 years old who was initially admitted on 03/14/2017, after she had an episode of syncope attack. She sustained left periorbital ecchymosis and forehead hematoma. The patient states she lives by herself. She does her own cooking and cleaning. Anyway, she was initially treated. Workup was done and was unremarkable. She was transferred to TCU on 03/18/2017. Yesterday, when I made a round and asked the patient, she states she feels she cannot go to the bathroom *------* and has discomfort upon urination, so we ordered urinalysis. She was not able to produce any urine. Catheter was tried. There was no output, so stat blood work and CBC were ordered that showed WBC is 10.9, hemoglobin 12.6, hematocrit 37, and her chemistry showed BUN of 51, creatinine of 1.2, so the patient was started on IV fluids. This morning around 6 o' clock, she became short of breath and bradycardic and her blood pressure went up to 215/64 and she had temperature of 100.5 and she was tachycardic with pulse rate of 115, so Rapid Response was called and the patient was given IV hydralazine, then she bottomed down and her blood pressure was 70/40, so she was transferred to emergency room for further evaluation and the patient was transferred to ICU for further management since she is in septic shock and she had altered mental status. PAST MEDICAL HISTORY: Significant for mild dementia, hypertension, history of seizure disorder. ALLERGIES: She is not allergic to any medications. MEDICATIONS: At home, she is on Keppra 500 twice a day, metoprolol 25 b.i.d., aspirin 81 daily. REVIEW OF SYSTEMS: The patient seems to be confused, not responding to asked questions, keeps on saying yes and yes and her left extremity seems to be weak. PHYSICAL EXAMINATION: VITAL SIGNS: She is afebrile, pulse 108, respirations 24, blood pressure 89/55. LUNGS: Bilateral fair air flow. No rhonchi or crackle. HEART: S1, S2 audible. ABDOMEN: soft, nontender, no rebound, no guarding. NEUROLOGICAL: The patient is awake and alert, but confused and disoriented. Has left upper extremity weakness, able to withdraw both legs on painful stimulus. LABORATORY DATA: ABG: PH is 7.50, bicarb 16, PO2 162. Urine shows positive nitrites, moderate bilirubin and leukocytes. Stool for C. diff done on 03/19/2017 is negative. ASSESSMENT AND PLAN: 1. Altered mental status 2. Urosepsis. 3. Dehydration and acute renal failure. PLAN: Currently, the patient was given a dose of gentamicin. She is on IV fluids. We will follow up blood cultures. CT scan of the brain is pending to rule out true CVA. I will request Dr. Jones for evaluation. Keep her n.p.o. until she is more alert and follow up CBC and CMP in a.m. Rojelio Mortensen MD
[2017-03-23 06:09] LABS: EOS % 0.1 % (1.5-5.0); GRAN # 6.84 (1.4-6.5); HEMOGLOBIN 9.1 gm/dL (12.0-16.0); LYMPH # 1.2 (1.2-3.4); LYMPH % 13.8 % (22.0-35.0); MEAN CELL VOLUME 88.3 fL (80.0-105.0); MEAN CORPUSCULAR HEMOGLOBIN 28.8 pg (25.0-35.0); MEAN CORPUSCULAR HGB CONC 32.6 g/dl (31.0-37.0); MEAN PLATELET VOLUME 10.2 fl (7.0-11.0); MONO # 0.3 (0.1-0.6); MONO % 4.1 % (1.0-6.0); PLATELET COUNT 198 10^3/uL (120.0-450.0); RBC 3.16 10^6/uL (3.5-6.1); RED CELL DISTRIBUTION WIDTH 15.4 % (11.5-14.5); WHITE BLOOD COUNT 8.3 10^3/ul (4.5-11.0)
[2017-03-23 06:16] LABS: ALB/GLOB RATIO 0.7 (1.1-1.8); ALBUMIN 2.4 g/dL (3.0-4.8); ALT/SGPT 20 U/L (7-56); AST/SGOT 21 U/L (15-39); BLOOD UREA NITROGEN 26 mg/dL (7-21); CALCIUM 7.7 mg/dL (8.4-10.5); GFR AFRICAN-AMERICAN > 60; GFR NON-AFRICAN AMERICAN 60
[2017-03-23] MEDS ORDERED: Potassium Chloride 20 mEq ER Tab PO ONE (07:13)
[2017-03-23] MEDS ORDERED: Potassium Chloride 40 mEq/30 ml LIQ UD PO ONE (07:41)
[2017-03-23] MEDS: Meropenem 1g/NS 100mL IVPB 1 GM/100 ML PIGGYBACK IVPB SCH ×2 (09:44→22:07)
[2017-03-23] MEDS ORDERED: cefTRIAXone 1 gm 1 GM/100 ML BAG IVPB SCH (10:00)
--- NOTE | 2017-03-23 11:35 | CP.PCM.CON ---
History of Present Illness - History of Present Illness History of Present Illness: 81 year old female with PMH of HTN, seizure disorder, history of leukemia, hypothyroidism, history of cataracts, S/P cholecystectomy was recently admitted in [facility] because of a fall and developed periorbital and left forehead hematoma. She did well and was in the TCU for physical rehab. She was noted to be confused yesterday and she was transferred to ICU for closer observation. Septic work up was done which is now showing gram negative bacilli in the urine. Infectious diseases consult is requested to further evaluate and manage. Currently the patient is awake and alert, comfortable in bed, not complaining of dysuria, no hematuria, no flank pain currently, no headache or dizziness, no pain around the left forehead or periorbital area, no nausea or vomiting, no chest pain, no SOB, no diarrhea, no abdominal pain. Review of Systems - Review of Systems All systems: reviewed and no additional remarkable complaints except (as per HPI ) Past Patient History - Tetanus Immunizations Tetanus Immunization: Unknown - Past Social History Smoking Status: Never Smoked - CARDIAC Hx Cardiac Disorders: Yes Hx Hypertension: Yes - PULMONARY Hx Respiratory Disorders: No - NEUROLOGICAL Hx Neurological Disorder: Yes Hx Seizures: Yes - HEENT Hx HEENT Problems: Yes (hard of hearing ''left ear'') Hx Cataracts: Yes (b/l sx) Other/Comment: left ear - hard of hearing - RENAL Hx Chronic Kidney Disease: No (denies) - ENDOCRINE/METABOLIC Hx Endocrine Disorders: Yes Hx Hypothyroidism: Yes - HEMATOLOGICAL/ONCOLOGICAL Hx Blood Disorders: Yes (blood transfusion) Hx AIDS: Yes Hx Cancer: Yes (Leukemia) Hx Chemotherapy: No (Refuses) - INTEGUMENTARY Hx Dermatological Problems: Yes - MUSCULOSKELETAL/RHEUMATOLOGICAL Hx Musculoskeletal Disorders: Yes Hx Arthritis: Yes Hx Falls: Yes Hx Fractures: Yes - GASTROINTESTINAL Hx Gastrointestinal Disorders: Yes Hx Gall Bladder Disease: Yes - GENITOURINARY/GYNECOLOGICAL Hx Genitourinary Disorders: No (denies) - PSYCHIATRIC Hx Psychophysiologic Disorder: No (denies) Hx Depression: No Hx Emotional Abuse: No Hx Physical Abuse: No Hx Substance Use: No - SURGICAL HISTORY Hx Cholecystectomy: Yes - ANESTHESIA Hx Anesthesia: No Hx Anesthesia Reactions: No ("had a hard time waking me up.") Meds Allergies/Adverse Reactions: Allergies Allergy/AdvReac Type Severity Reaction Status Date / Time No Known Allergies Allergy Verified 03/22/17 12:53 - Medications Medications: Current Medications Aspirin (Aspirin Chewable) 81 mg PO DAILY [facility] Atorvastatin Calcium (Lipitor) 10 mg PO DIN [facility] Ceftriaxone Sodium (Rocephin 1 Gram Ivpb) 1 gm in 100 mls @ 100 mls/hr IVPB DAILY [facility] PRN Reason: Protocol Sodium Chloride (Sodium Chloride 0.9%) 2,000 mls @ 999 mls/hr IV .Q2H1M STA Stop: 03/22/17 15:15 Last Admin: 03/22/17 14:04 Dose: 999 mls/hr Pantoprazole Sodium (Protonix Inj) 40 mg IVP DAILY [facility] Last Admin: 03/22/17 10:59 Dose: 40 mg Physical Exam - Constitutional Appears: Non-toxic, No Acute Distress - Head Exam Additional comments: periorbital hematoma noted - ENT Exam ENT Exam: Mucous Membranes Moist - Neck Exam Neck exam: Negative for: Lymphadenopathy, Meningismus - Respiratory Exam Respiratory Exam: Decreased Breath Sounds - Cardiovascular Exam Cardiovascular Exam: +S1, +S2 - GI/Abdominal Exam GI & Abdominal Exam: Soft. absent: Tenderness Results - Vital Signs Recent Vital Signs: Last Vital Signs Temp 98.4 F 03/22/17 12:56 Pulse 103 H 03/22/17 13:20 Resp 18 03/22/17 13:20 BP 81/55 L 03/22/17 13:15 Pulse Ox 100 03/22/17 13:20 - Labs Result Diagrams: 03/23/17 05:30 03/23/17 05:30 Labs: Laboratory Results - last 24 hr 03/22/17 03/22/17 11:24 11:50 pCO2 21 L pO2 162.0 H HCO3 16.4 L ABG pH 7.50 H ABG Total CO2 17.0 L ABG O2 Saturation 99.7 H ABG Base Excess -4.6 L ABG Potassium 3.5 L Sodium 139.0 Chloride 116.0 H Glucose 108 H Lactate 1.3 FiO2 36.0 POC Glucose (mg/dL) 126 H Arterial Blood Potassium 3.5 L Assessment & Plan - Assessment and Plan (Free Text) Plan: Assessment Consider sepsis due to urinary tract infection with gram negative bacilli left forehead and periorbital hematoma from a fall HTN seizure disorder history of leukemia hypothyroidism history of cataracts S/P cholecystectomy Plan Started patient on Merrem pending identification and sensitivities of the gram negative bacilli in the urine; follow up blood cx; aware that Merrem may lower seizure threshold but it is not as notorious as Imipenem - can be observed in ICU if patient develops seizures will monitor clinically
--- NOTE | 2017-03-23 12:29 | CP.CCUPN ---
CCU Subjective - Physician Review Events Since Last Encounter (Free Text): 03/23/17 12:26 No acute events overnight Markedly improved Mental status and BP CCU Objective - Vital Signs / Intake & Output Vital Signs (Last 4 hours): Vital Signs Temp Pulse Resp BP Pulse Ox 03/23/17 12:10 93 H 23 75 L 03/23/17 12:00 94 H 18 98/56 L 100 03/23/17 11:50 90 22 100 03/23/17 11:40 90 23 81 L 03/23/17 11:30 88 20 107/51 L 90 L 03/23/17 11:20 93 H 100 03/23/17 11:10 91 H 22 100 03/23/17 11:00 90 111/64 97 03/23/17 10:50 98 H 24 100 03/23/17 10:42 93 H 21 03/23/17 10:41 96 H 11 L 110/70 03/23/17 10:36 97.7 F 97 H 19 03/23/17 10:32 98 H 32 H 03/23/17 10:30 102 H 19 104/63 68 L 03/23/17 10:28 101 H 21 03/23/17 10:27 102 H 24 03/23/17 10:20 88 13 100 03/23/17 10:10 91 H 14 100 03/23/17 10:08 88 18 03/23/17 10:07 108/63 100 03/23/17 10:00 85 18 88/47 L 100 03/23/17 09:50 89 12 100 03/23/17 09:40 90 18 100 03/23/17 09:30 88 94/57 L 100 03/23/17 09:20 87 20 100 03/23/17 09:10 91 H 16 100 03/23/17 09:00 87 14 87/44 L 100 03/23/17 08:50 87 17 100 03/23/17 08:40 90 24 100 03/23/17 08:30 94 H 21 95/52 L 100 Intake and Output (Last 8hrs): Intake & Output 03/22/17 03/23/17 03/23/17 22:59 06:59 14:59 Intake Total 480 Output Total 1800 Balance -1320 Weight 120 lb 11.2 oz Intake: IV 480 Right Forearm 480 Output: Stool 1800 Other: Voiding Method Indwelling Catheter Indwelling Catheter - Physical Exam Head: Positive for: Ecchymosis (Old large ecchymotic area over left forehead, face and jaw) Pupils: Positive for: PERRL Conjunctiva: Positive for: Normal Mouth: Positive for: Moist Mucous Membranes Pharnyx: Negative for: ERYTHEMA, EXUDATE, TONSILS ENLARGED Respiratory/Chest: Positive for: Clear to Auscultation, Good Air Exchange. Negative for: Respiratory Distress, Accessory Muscle Use Cardiovascular: Positive for: Normal S1, S2, Irregular Rhythm, Tachycardic. Negative for: Murmurs Abdomen: Positive for: Distention, Normal Bowel Sounds. Negative for: Tenderness, Peritoneal Signs, Rebound, Guarding Upper Extremity: Positive for: Normal Inspection. Negative for: Cyanosis, Edema Lower Extremity: Positive for: Normal Inspection. Negative for: Edema Skin: Positive for: Warm, Dry, Pale. Negative for: Rashes Psychiatric: Positive for: Alert, Oriented x 3 - Medications Active Medications: Active Medications Generic Name Dose Route Start Last Admin Trade Name Freq PRN Reason Stop Dose Admin Aspirin 81 mg 03/23/17 10:00 03/23/17 11:33 Aspirin Chewable PO 81 mg DAILY [facility] Administration Atorvastatin Calcium 10 mg 03/22/17 17:00 03/22/17 19:24 Lipitor PO Not Given DIN [facility] Meropenem 1g/NS 100mL IVPB 1 gm in 100 mls @ 100 mls/hr 03/22/17 14:23 09:44 Meropenem 1g/Ns 100ml Ivpb IVPB 03/29/17 14:24 100 mls/hr Q12 [facility] Administration Protocol Sodium Chloride 1,000 mls @ 40 mls/hr 03/22/17 18:15 03/22/17 18:16 Sodium Chloride 0.9% IV 40 mls/hr .Q24H [facility] Administration Potassium Chloride 10 meq in 100 mls @ 100 mls/hr 03/23/17 10:45 03/23/17 11: 33 Potassium Chloride 10 Meq/100 Ml IVPB 03/23/17 13:44 100 mls/hr Q2H [facility] Administration Pantoprazole Sodium 40 mg 03/22/17 10:45 03/23/17 09:44 Protonix Inj IVP 40 mg DAILY [facility] Administration - Patient Studies Lab Studies: Lab Studies 03/23/17 03/23/17 03/23/17 Range/Units 11:18 07:32 05:30 WBC (4.5-11.0) 10^3/ul RBC (3.5-6.1) 10^6/uL Hgb (12.0-16.0) gm/dL Hct (36.0-48.0) % MCV (80.0-105.0) fL MCH (25.0-35.0) pg MCHC (31.0-37.0) g/dl RDW (11.5-14.5) % Plt Count (120.0-450.0) 10^3/uL MPV (7.0-11.0) fl Gran % (50.0-68.0) % Lymph % (Auto) (22.0-35.0) % Lawrence % (Auto) (1.0-6.0) % Eos % (Auto) (1.5-5.0) % Baso % (Auto) (0.0-3.0) % Gran # (1.4-6.5) Lymph # (1.2-3.4) Lawrence # (0.1-0.6) Eos # (0.0-0.7) Baso # (0.0-2.0) K/mm3 Sodium 140 (132-148) mmol/L Potassium 3.0 L (3.6-5.0) mmol/L Chloride 113 H (98-107) mmol/L Carbon Dioxide 19 L (21-33) mmol/L Anion Gap 11 (10-20) BUN 26 H (7-21) mg/dL Creatinine 0.9 (0.5-1.4) mg/dL Est GFR ( Amer) > 60 Est GFR (Non-Af Amer) 60 POC Glucose (mg/dL) 95 88 (65-110) mg/dL Random Glucose 82 (70-110) mg/dL Calcium 7.7 L (8.4-10.5) mg/dL Total Bilirubin 0.5 (0.2-1.3) mg/dL AST 21 (15-39) U/L ALT 20 (7-56) U/L Alkaline Phosphatase 66 (38-133) U/L Troponin I ng/mL Total Protein 5.7 L (5.8-8.3) g/dL Albumin 2.4 L (3.0-4.8) g/dL Globulin 3.3 gm/dL Albumin/Globulin Ratio 0.7 L (1.1-1.8) Procalcitonin (0.19-0.49) NG/ML 03/23/17 03/22/17 03/22/17 Range/Units 05:30 19:58 17:51 WBC 8.3 D (4.5-11.0) 10^3/ul RBC 3.16 L (3.5-6.1) 10^6/uL Hgb 9.1 L (12.0-16.0) gm/dL Hct 27.9 L (36.0-48.0) % MCV 88.3 (80.0-105.0) fL MCH 28.8 (25.0-35.0) pg MCHC 32.6 (31.0-37.0) g/dl RDW 15.4 H (11.5-14.5) % Plt Count 198 (120.0-450.0) 10^3/uL MPV 10.2 (7.0-11.0) fl Gran % 82.0 H (50.0-68.0) % Lymph % (Auto) 13.8 L (22.0-35.0) % Lawrence % (Auto) 4.1 (1.0-6.0) % Eos % (Auto) 0.1 L (1.5-5.0) % Baso % (Auto) 0.0 (0.0-3.0) % Gran # 6.84 H (1.4-6.5) Lymph # 1.2 (1.2-3.4) Lawrence # 0.3 (0.1-0.6) Eos # 0.0 (0.0-0.7) Baso # 0.00 (0.0-2.0) K/mm3 Sodium (132-148) mmol/L Potassium (3.6-5.0) mmol/L Chloride (98-107) mmol/L Carbon Dioxide (21-33) mmol/L Anion Gap (10-20) BUN (7-21) mg/dL Creatinine (0.5-1.4) mg/dL Est GFR ( Amer) Est GFR (Non-Af Amer) POC Glucose (mg/dL) 108 113 H (65-110) mg/dL Random Glucose (70-110) mg/dL Calcium (8.4-10.5) mg/dL Total Bilirubin (0.2-1.3) mg/dL AST (15-39) U/L ALT (7-56) U/L Alkaline Phosphatase (38-133) U/L Troponin I ng/mL Total Protein (5.8-8.3) g/dL Albumin (3.0-4.8) g/dL Globulin gm/dL Albumin/Globulin Ratio (1.1-1.8) Procalcitonin (0.19-0.49) NG/ML 03/22/17 03/22/17 03/22/17 Range/Units 15:44 14:39 14:30 WBC (4.5-11.0) 10^3/ul RBC (3.5-6.1) 10^6/uL Hgb (12.0-16.0) gm/dL Hct (36.0-48.0) % MCV (80.0-105.0) fL MCH (25.0-35.0) pg MCHC (31.0-37.0) g/dl RDW (11.5-14.5) % Plt Count (120.0-450.0) 10^3/uL MPV (7.0-11.0) fl Gran % (50.0-68.0) % Lymph % (Auto) (22.0-35.0) % Lawrence % (Auto) (1.0-6.0) % Eos % (Auto) (1.5-5.0) % Baso % (Auto) (0.0-3.0) % Gran # (1.4-6.5) Lymph # (1.2-3.4) Lawrence # (0.1-0.6) Eos # (0.0-0.7) Baso # (0.0-2.0) K/mm3 Sodium (132-148) mmol/L Potassium (3.6-5.0) mmol/L Chloride (98-107) mmol/L Carbon Dioxide (21-33) mmol/L Anion Gap (10-20) BUN (7-21) mg/dL Creatinine (0.5-1.4) mg/dL Est GFR ( Amer) Est GFR (Non-Af Amer) POC Glucose (mg/dL) 220 H 122 H (65-110) mg/dL Random Glucose (70-110) mg/dL Calcium (8.4-10.5) mg/dL Total Bilirubin (0.2-1.3) mg/dL AST (15-39) U/L ALT (7-56) U/L Alkaline Phosphatase (38-133) U/L Troponin I ng/mL Total Protein (5.8-8.3) g/dL Albumin (3.0-4.8) g/dL Globulin gm/dL Albumin/Globulin Ratio (1.1-1.8) Procalcitonin 24.78 H (0.19-0.49) NG/ML 03/22/17 03/22/17 Range/Units 14:20 12:30 WBC (4.5-11.0) 10^3/ul RBC (3.5-6.1) 10^6/uL Hgb (12.0-16.0) gm/dL Hct (36.0-48.0) % MCV (80.0-105.0) fL MCH (25.0-35.0) pg MCHC (31.0-37.0) g/dl RDW (11.5-14.5) % Plt Count (120.0-450.0) 10^3/uL MPV (7.0-11.0) fl Gran % (50.0-68.0) % Lymph % (Auto) (22.0-35.0) % Lawrence % (Auto) (1.0-6.0) % Eos % (Auto) (1.5-5.0) % Baso % (Auto) (0.0-3.0) % Gran # (1.4-6.5) Lymph # (1.2-3.4) Lawrence # (0.1-0.6) Eos # (0.0-0.7) Baso # (0.0-2.0) K/mm3 Sodium 138 (132-148) mmol/L Potassium 4.0 (3.6-5.0) mmol/L Chloride 111 H (98-107) mmol/L Carbon Dioxide 18 L (21-33) mmol/L Anion Gap 13 (10-20) BUN 37 H (7-21) mg/dL Creatinine 1.0 (0.5-1.4) mg/dL Est GFR ( Amer) > 60 Est GFR (Non-Af Amer) 53 POC Glucose (mg/dL) 128 H (65-110) mg/dL Random Glucose 97 (70-110) mg/dL Calcium 7.4 L (8.4-10.5) mg/dL Total Bilirubin 0.4 (0.2-1.3) mg/dL AST 15 (15-39) U/L ALT 18 (7-56) U/L Alkaline Phosphatase 62 (38-133) U/L Troponin I 0.02 D ng/mL Total Protein 5.6 L (5.8-8.3) g/dL Albumin 2.4 L (3.0-4.8) g/dL Globulin 3.2 gm/dL Albumin/Globulin Ratio 0.8 L (1.1-1.8) Procalcitonin (0.19-0.49) NG/ML Laboratory Results - last 24 hr 03/22/17 03/22/17 03/22/17 12:30 14:20 14:30 WBC RBC Hgb Hct MCV MCH MCHC RDW Plt Count MPV Gran % Lymph % (Auto) Lawrence % (Auto) Eos % (Auto) Baso % (Auto) Gran # Lymph # Lawrence # Eos # Baso # Sodium 138 Potassium 4.0 Chloride 111 H Carbon Dioxide 18 L Anion Gap 13 BUN 37 H Creatinine 1.0 Est GFR ( Amer) > 60 Est GFR (Non-Af Amer) 53 POC Glucose (mg/dL) 128 H Random Glucose 97 Calcium 7.4 L Total Bilirubin 0.4 AST 15 ALT 18 Alkaline Phosphatase 62 Troponin I 0.02 D Total Protein 5.6 L Albumin 2.4 L Globulin 3.2 Albumin/Globulin Ratio 0.8 L Procalcitonin 24.78 H 03/22/17 03/22/17 03/22/17 14:39 15:44 17:51 WBC RBC Hgb Hct MCV MCH MCHC RDW Plt Count MPV Gran % Lymph % (Auto) Lawrence % (Auto) Eos % (Auto) Baso % (Auto) Gran # Lymph # Lawrence # Eos # Baso # Sodium Potassium Chloride Carbon Dioxide Anion Gap BUN Creatinine Est GFR ( Amer) Est GFR (Non-Af Amer) POC Glucose (mg/dL) 122 H 220 H 113 H Random Glucose Calcium Total Bilirubin AST ALT Alkaline Phosphatase Troponin I Total Protein Albumin Globulin Albumin/Globulin Ratio Procalcitonin 03/22/17 03/23/17 03/23/17 19:58 05:30 05:30 WBC 8.3 D RBC 3.16 L Hgb 9.1 L Hct 27.9 L MCV 88.3 MCH 28.8 MCHC 32.6 RDW 15.4 H Plt Count 198 MPV 10.2 Gran % 82.0 H Lymph % (Auto) 13.8 L Lawrence % (Auto) 4.1 Eos % (Auto) 0.1 L Baso % (Auto) 0.0 Gran # 6.84 H Lymph # 1.2 Lawrence # 0.3 Eos # 0.0 Baso # 0.00 Sodium 140 Potassium 3.0 L Chloride 113 H Carbon Dioxide 19 L Anion Gap 11 BUN 26 H Creatinine 0.9 Est GFR ( Amer) > 60 Est GFR (Non-Af Amer) 60 POC Glucose (mg/dL) 108 Random Glucose 82 Calcium 7.7 L Total Bilirubin 0.5 AST 21 ALT 20 Alkaline Phosphatase 66 Troponin I Total Protein 5.7 L Albumin 2.4 L Globulin 3.3 Albumin/Globulin Ratio 0.7 L Procalcitonin 03/23/17 03/23/17 07:32 11:18 WBC RBC Hgb Hct MCV MCH MCHC RDW Plt Count MPV Gran % Lymph % (Auto) Lawrence % (Auto) Eos % (Auto) Baso % (Auto) Gran # Lymph # Lawrence # Eos # Baso # Sodium Potassium Chloride Carbon Dioxide Anion Gap BUN Creatinine Est GFR ( Amer) Est GFR (Non-Af Amer) POC Glucose (mg/dL) 88 95 Random Glucose Calcium Total Bilirubin AST ALT Alkaline Phosphatase Troponin I Total Protein Albumin Globulin Albumin/Globulin Ratio Procalcitonin Fingerstick Blood Sugar Results: 95 Critical Care Progress Note - Ventilator Checklist PUD Prophalyxis: Yes DVT Prophylaxis: Yes - Nutrition Nutrition: Nutrition Category Date Time Status Heart Healthy Diet [DIET] Diets 03/23/17 Lunch Ordered Assessment/Plan - Assessment and Plan (Free Text) Assessment: 81 y/o F w/ Sepsis secondary to UTI Mental status improved after ABX treatment x 2 doses and hydration of 5L NS. SBP improved this a.m and mental status. WBC steady, no fevers, UCX Gram negative rods pending identification. Can advance diet. Replace electrolytes. dvt P cc time 55 min
--- NOTE | 2017-03-23 12:48 | PN ---
SUBJECTIVE: The patient is 81 years old, seen and examined, much more awake, alert, oriented, communicative, eating and tolerating. PHYSICAL EXAMINATION: VITAL SIGNS: She is afebrile, pulse 87, respirations 20, and blood pressure 112/53. HEART: S1 and S2 audible. LUNGS: Bilateral fair airflow. No rhonchi or crackles. ABDOMEN: Soft and nontender. No rebound. No guarding. NEUROLOGIC: She is awake and alert, able to communicate, moves all extremities, and generalized weakness. She has left facial ecchymosis and left forehead hematoma. LABORATORY DATA: WBC is 8.3, hemoglobin is 9.1, hematocrit is 27.9, and platelets are 198. Chemistry; sodium is 140, potassium is 3.0, chloride is 113, CO2 is 19, BUN is 26, and creatinine is 0.9. Blood sugar is 95. She has gram-negative toni sepsis. Blood cultures that was drawn on TCU on 03/22/2017 shows gram-negative rods probably because of UTI. PLAN: Currently, the patient is on meropenem, we will continue that. She is on IV fluids. The patient is clinically stable to be transferred out of ICU, discussed with nursing staff and ICU attending. Rojelio Mortensen MD
[2017-03-24 06:43] LABS: BASO # 0.01 K/mm3 (0.0-2.0); BASO % 0.2 % (0.0-3.0); EOS % 0.5 % (1.5-5.0); GRAN # 4.95 (1.4-6.5); GRAN % 74.2 % (50.0-68.0); HEMOGLOBIN 9.4 gm/dL (12.0-16.0); LYMPH # 1.3 (1.2-3.4); MEAN CORPUSCULAR HEMOGLOBIN 28.7 pg (25.0-35.0); MEAN CORPUSCULAR HGB CONC 32.3 g/dl (31.0-37.0); MEAN PLATELET VOLUME 10.5 fl (7.0-11.0); MONO # 0.3 (0.1-0.6); MONO % 5.1 % (1.0-6.0); PLATELET COUNT 204 10^3/uL (120.0-450.0); RBC 3.27 10^6/uL (3.5-6.1); RED CELL DISTRIBUTION WIDTH 15.4 % (11.5-14.5); WHITE BLOOD COUNT 6.7 10^3/ul (4.5-11.0)
[2017-03-24 06:48] LABS: ALB/GLOB RATIO 0.8 (1.1-1.8); ALBUMIN 2.5 g/dL (3.0-4.8); ALT/SGPT 31 U/L (7-56); AST/SGOT 16 U/L (15-39); BLOOD UREA NITROGEN 27 mg/dL (7-21); CALCIUM 7.9 mg/dL (8.4-10.5); GFR AFRICAN-AMERICAN > 60; GFR NON-AFRICAN AMERICAN 60
[2017-03-24] MEDS: cefTRIAXone 1 gm 1 GM/100 ML BAG IVPB SCH (10:06)
--- NOTE | 2017-03-24 11:57 | CP.PCM.PN ---
Subjective - Date & Time of Evaluation Date of Evaluation: 03/24/17 Time of Evaluation: 11:05 - Subjective Subjective: Comfortable in bed, not in distress, afebrile, no dysuria currently. Objective - Vital Signs/Intake and Output Vital Signs (last 24 hours): Temp Pulse Resp BP Pulse Ox 97.7 F 86 18 95/59 L 100 03/23/17 10:36 03/23/17 16:00 03/23/17 16:00 03/23/17 16:00 03/23/17 16:00 Intake and Output: 03/24/17 03/24/17 06:59 18:59 Intake Total 600 Output Total 200 Balance 400 - Medications Medications: Current Medications Aspirin (Aspirin Chewable) 81 mg PO DAILY [facility] Last Admin: 03/23/17 11:33 Dose: 81 mg Atorvastatin Calcium (Lipitor) 10 mg PO DIN [facility] Last Admin: 03/23/17 16:07 Dose: 10 mg Heparin Sodium (Porcine) (Heparin) 5,000 units SC Q12 [facility] PRN Reason: Protocol Meropenem 1g/NS 100mL IVPB (Meropenem 1g/Ns 100ml Ivpb) 1 gm in 100 mls @ 100 mls/hr IVPB Q12 [facility] PRN Reason: Protocol Stop: 03/29/17 14:24 Last Admin: 03/23/17 22:07 Dose: 100 mls/hr Sodium Chloride (Sodium Chloride 0.9%) 1,000 mls @ 40 mls/hr IV .Q24H [facility] Last Admin: 03/22/17 18:16 Dose: 40 mls/hr Pantoprazole Sodium (Protonix Inj) 40 mg IVP DAILY [facility] Last Admin: 03/23/17 09:44 Dose: 40 mg - Labs Labs: 03/24/17 06:00 03/24/17 06:00 - Constitutional Appears: Non-toxic, No Acute Distress - Head Exam Head Exam: NORMAL INSPECTION - ENT Exam ENT Exam: Mucous Membranes Moist - Neck Exam Neck Exam: absent: Lymphadenopathy, Meningismus - Respiratory Exam Respiratory Exam: Decreased Breath Sounds - Cardiovascular Exam Cardiovascular Exam: +S1, +S2 - GI/Abdominal Exam GI & Abdominal Exam: Soft. absent: Tenderness Assessment and Plan - Assessment and Plan (Free Text) Plan: Assessment sepsis due to urinary tract infection with E. coli left forehead and periorbital hematoma from a fall HTN seizure disorder history of leukemia hypothyroidism history of cataracts S/P cholecystectomy Plan will switch Merrem to Rocephin (day 2) and will continue to monitor clinically
--- NOTE | 2017-03-25 01:29 | PN ---
DATE: 03/24/2017 HISTORY OF PRESENT ILLNESS: The patient is an 81-year-old female admitted to the hospital with hypertension and urosepsis. She is currently on IV antibiotics. She was admitted earlier with syncope and transferred to transitional care unit. She is comfortable in bed, in no acute distress. Denies any complaint today. MEDICATIONS: Aspirin 81 daily, Lipitor 10 mg daily, ceftriaxone 1 g daily, heparin 5000 subcutaneously q. 12 h., Protonix 40 mg daily, IV fluid at 40 mL/hour. LABORATORY DATA: White count 6.7, hemoglobin 9.4, hematocrit 29.1, and platelet count 204. Sodium 136, potassium 3.9, and creatinine 0.9. Total bilirubin 0.4. PHYSICAL EXAMINATION: GENERAL: She is comfortable in bed, in no acute distress. VITAL SIGNS: Temperature 98.2, heart rate 98 per minute, blood pressure 136/82, respiratory rate 18 per minute, and oxygen saturation 99% on room air. Big bruise on the left side of the face. Small hematoma on the forehead present. HEENT: Oral mucosa moist. NECK: Supple. No lymphadenopathy. CHEST: Air entry present and equal bilateral. No added sound. CARDIOVASCULAR: S1 and S2 normal. No murmur, no gallop. ABDOMEN: Soft, nontender. No hepatosplenomegaly. EXTREMITIES: No edema. MANAGER [employer]: Alert and oriented x3. SPINE: Nontender. LYMPHADENOPATHY: None. ASSESSMENT: 1. Urosepsis. 2. Hypertension, resolved. 3. History of syncope. 4. Anemia. PLAN: She is currently stable. Currently on IV antibiotic as per ID. Ceftriaxone IV daily. Urine culture showed E. coli. No active bleeding. She has big bruise on the left side of the face because of syncope and fall. She had hypokalemia. Potassium is normal now. Renal function is normal. Isabell Cerrato MD
--- NOTE | 2017-03-25 06:58 | PQF GENQUE ---
This form is a permanent part of the medical record Dr. Mortensen, Please clarify and validate if the following conditions/diagnosis were present: In your H&P you noted patient was in septic shock. This diagnosis does not appear again in your notes. Please specify if present or ruled out. HIV/AIDS was noted in the ID consult as part of history but does not appear in your history. Does patient have HIV? Clarification of your documentation is requested to better reflect the severity of illness and intensity of treatment of your patient. Indicators present [] Specify: [] [] Specify: [] [] Specify: [] [] Specify: [] Location in the medical record that reflects the above clinical findings: [] Treatment Provided: [] PHYSICIAN'S RESPONSE Based on your medical judgment of the clinical indicators outlined above please clarify the following: [] Practitioner response [] If unable to determine, please check the box, sign and date. Present On Admission (POA) Indicator: [] Present at the time of admission [] Not present at the time of admission [] Clinically Undetermined In responding to this query, please exercise your independent professional judgment. The fact that a question is asked does not imply that any particular answer is desired or expected. Thank you for your clarification on this documentation. If you have any questions please call:[ ] * Thank you, [ ]Rosa Carpenter CDS #[id number] event security officer KIRBY
[2017-03-25 08:13] LABS: BASO # 0.01 K/mm3 (0.0-2.0); BASO % 0.2 % (0.0-3.0); EOS # 0.1 (0.0-0.7); EOS % 1.3 % (1.5-5.0); GRAN # 3.67 (1.4-6.5); GRAN % 59.6 % (50.0-68.0); HEMOGLOBIN 9.7 gm/dL (12.0-16.0); LYMPH % 32.6 % (22.0-35.0); MEAN CELL VOLUME 87.2 fL (80.0-105.0); MEAN CORPUSCULAR HEMOGLOBIN 28.9 pg (25.0-35.0); MEAN CORPUSCULAR HGB CONC 33.1 g/dl (31.0-37.0); MEAN PLATELET VOLUME 9.9 fl (7.0-11.0); MONO # 0.4 (0.1-0.6); MONO % 6.3 % (1.0-6.0); PLATELET COUNT 214 10^3/uL (120.0-450.0); RBC 3.36 10^6/uL (3.5-6.1); RED CELL DISTRIBUTION WIDTH 15.1 % (11.5-14.5); WHITE BLOOD COUNT 6.2 10^3/ul (4.5-11.0)
[2017-03-25 08:25] LABS: ALB/GLOB RATIO 0.7 (1.1-1.8); ALBUMIN 2.5 g/dL (3.0-4.8); ALT/SGPT 19 U/L (7-56); AST/SGOT 16 U/L (15-39); BLOOD UREA NITROGEN 28 mg/dL (7-21); CALCIUM 7.7 mg/dL (8.4-10.5); GFR AFRICAN-AMERICAN > 60; GFR NON-AFRICAN AMERICAN 53
[2017-03-25] MEDS: cefTRIAXone 1 gm 1 GM/100 ML BAG IVPB SCH (10:09)
--- NOTE | 2017-03-25 21:09 | CP.PCM.PN ---
Subjective - Date & Time of Evaluation Date of Evaluation: 03/25/17 Time of Evaluation: 10:00 - Subjective Subjective: Comfortable, not in distress, afebrile. Objective - Vital Signs/Intake and Output Vital Signs (last 24 hours): Temp Pulse Resp BP Pulse Ox 98.2 F 98 H 18 136/82 99 03/24/17 18:00 03/24/17 18:00 03/24/17 18:00 03/24/17 18:00 03/24/17 18:00 Intake and Output: 03/25/17 03/25/17 06:59 18:59 Intake Total 540 Balance 540 - Medications Medications: Current Medications Aspirin (Aspirin Chewable) 81 mg PO DAILY [facility] Last Admin: 03/24/17 10:07 Dose: 81 mg Atorvastatin Calcium (Lipitor) 10 mg PO DIN [facility] Last Admin: 03/24/17 17:50 Dose: 10 mg Heparin Sodium (Porcine) (Heparin) 5,000 units SC Q12 [facility] PRN Reason: Protocol Last Admin: 03/24/17 22:35 Dose: 5,000 units Sodium Chloride (Sodium Chloride 0.9%) 1,000 mls @ 40 mls/hr IV .Q24H [facility] Last Admin: 03/22/17 18:16 Dose: 40 mls/hr Ceftriaxone Sodium (Rocephin 1 Gram Ivpb) 1 gm in 100 mls @ 100 mls/hr IVPB DAILY [facility] PRN Reason: Protocol Last Admin: 03/24/17 10:06 Dose: 100 mls/hr Pantoprazole Sodium (Protonix Inj) 40 mg IVP DAILY [facility] Last Admin: 03/24/17 10:06 Dose: 40 mg - Labs Labs: 03/25/17 08:07 03/25/17 08:07 - Constitutional Appears: Non-toxic, No Acute Distress - Head Exam Additional comments: left sided forehead and periorbital hematoma, slowly improving - Neck Exam Neck Exam: absent: Meningismus - Respiratory Exam Respiratory Exam: Decreased Breath Sounds - Cardiovascular Exam Cardiovascular Exam: +S1, +S2 - GI/Abdominal Exam GI & Abdominal Exam: Soft. absent: Tenderness Assessment and Plan - Assessment and Plan (Free Text) Plan: Assessment sepsis due to urinary tract infection with E. coli left forehead and periorbital hematoma from a fall HTN seizure disorder history of leukemia hypothyroidism history of cataracts S/P cholecystectomy Plan continue Rocephin (day 3) and will continue to monitor clinically
--- NOTE | 2017-03-26 01:14 | DS ---
HISTORY OF PRESENT ILLNESS: The patient is an 82-year-old seen and examined. Doing well eating and tolerating. Fully awake, alert, oriented and communicative. PHYSICAL EXAMINATION: VITAL SIGNS: She is afebrile, pulse 81, respirations 17, and blood pressure 142/81. LUNGS: Bilateral fair air flow. No rhonchi or crackle. HEART: S1 and S2, audible. ABDOMEN: Soft and nontender. No rebound. No guarding. NEUROLOGIC: She is awake, and alert, able to communicate. HEAD AND NECK: She has traumatic face with left periorbital ecchymosis and left forehead hematoma seem to be resolving. EXTREMITIES: Bilateral leg no edema. LABORATORY DATA: WBC 6.2, hemoglobin 9.7, hematocrit 29.3, and platelet 214. Chemistry; sodium 132, potassium 3.8, chloride 105, CO2 of 19, BUN 28, creatinine 1.0, and blood sugar of 53. ASSESSMENT AND PLAN: 1. Altered mental status secondary to urosepsis. She has E. coli and urine. 2. Status post fall. 3. History of hypertension. 4. Hyperlipidemia. PLAN: Currently, the patient is on DVT prophylaxis. She is eating and drinking enough. I will discontinue IV fluid. Discontinue IV Protonix. Started on Pepcid and requested for TCU evaluation. If the patient is accepted, she can be transfer to TCU today. Rojelio Mortensen MD MTDD
[2017-03-26] MEDS: cefTRIAXone 1 gm 1 GM/100 ML BAG IVPB SCH (10:26)
--- NOTE | 2017-03-26 15:54 | CP.PCM.PN ---
Subjective - Date & Time of Evaluation Date of Evaluation: 03/26/17 Time of Evaluation: 07:40 - Subjective Subjective: Comfortable, not in distress, afebrile, no pain in the face. Objective - Vital Signs/Intake and Output Vital Signs (last 24 hours): Temp Pulse Resp BP Pulse Ox 99.0 F 78 20 114/66 100 03/26/17 06:00 03/26/17 06:00 03/26/17 06:00 03/26/17 06:00 03/26/17 06:00 Intake and Output: 03/26/17 03/26/17 06:59 18:59 Intake Total 660 240 Balance 660 240 - Medications Medications: Current Medications Aspirin (Aspirin Chewable) 81 mg PO DAILY [facility] Last Admin: 03/25/17 10:11 Dose: 81 mg Atorvastatin Calcium (Lipitor) 10 mg PO DIN [facility] Last Admin: 03/25/17 16:46 Dose: 10 mg Famotidine (Pepcid) 20 mg PO 1000,2200 [facility] Last Admin: 03/25/17 21:16 Dose: 20 mg Heparin Sodium (Porcine) (Heparin) 5,000 units SC Q12 [facility] PRN Reason: Protocol Last Admin: 03/25/17 21:16 Dose: 5,000 units Ceftriaxone Sodium (Rocephin 1 Gram Ivpb) 1 gm in 100 mls @ 100 mls/hr IVPB DAILY [facility] PRN Reason: Protocol Last Admin: 03/25/17 10:09 Dose: 100 mls/hr - Labs Labs: 03/25/17 08:07 03/25/17 08:07 - Constitutional Appears: Non-toxic, No Acute Distress - Head Exam Additional comments: left periorbital area and forehead with decreasing hematoma - ENT Exam ENT Exam: Mucous Membranes Moist - Neck Exam Neck Exam: absent: Meningismus - Respiratory Exam Respiratory Exam: Decreased Breath Sounds - Cardiovascular Exam Cardiovascular Exam: +S1, +S2 - GI/Abdominal Exam GI & Abdominal Exam: Soft. absent: Tenderness Assessment and Plan - Assessment and Plan (Free Text) Plan: Assessment sepsis due to urinary tract infection with E. coli, clinically improving left forehead and periorbital hematoma from a fall HTN seizure disorder history of leukemia hypothyroidism history of cataracts S/P cholecystectomy Plan continue Rocephin (day 4) and will continue to monitor clinically; when ready for discharge, the patient can be switched to PO Cefpodoxime 200 mg BID for another 7 days
--- NOTE | 2017-03-26 21:04 | PN ---
SUBJECTIVE: The patient is an 82-year-old seen and examined, lying in bed, seems to be comfortable, complain of increased frequency of urination and increase frequency of bowel. No fever or chills. No nausea or vomiting. Eating and tolerating. PHYSICAL EXAMINATION: VITAL SIGNS: She is afebrile, pulse 78, respirations 20 and blood pressure 114/66. HEAD AND NECK: She has a left periorbital ecchymosis and left forehead hematoma seems to be improving. LUNGS: Bilateral fair airflow. No rhonchi or crackles. HEART: S1 and S2 audible. ABDOMEN: Soft and nontender. No rebound. No guarding. NEUROLOGIC: She is awake and alert, able to communicate. ASSESSMENT: 1. Status post urosepsis. 2. Status post altered mental status. 3. Status post fall. PLAN: I will order stool for C. diff. Order for urine culture and sensitivity, awaiting TCU evaluation and acceptance, once the patient is accepted to TCU, she can be transferred. Rojelio Mortensen MD
[2017-03-27] MEDS: cefTRIAXone 1 gm 1 GM/100 ML BAG IVPB SCH (09:13)
--- NOTE | 2017-03-27 14:04 | CP.PCM.PN ---
Subjective - Date & Time of Evaluation Date of Evaluation: 03/27/17 Time of Evaluation: 07:30 - Subjective Subjective: Comfortable, not in distress, afebrile, no dysuria, no abdominal pain. Objective - Vital Signs/Intake and Output Vital Signs (last 24 hours): Temp Pulse Resp BP Pulse Ox 98.0 F 79 20 121/73 98 03/27/17 06:00 03/27/17 06:00 03/27/17 06:00 03/27/17 06:00 03/27/17 06:00 Intake and Output: 03/27/17 03/27/17 06:59 18:59 Intake Total 420 118 Balance 420 118 - Medications Medications: Current Medications Aspirin (Aspirin Chewable) 81 mg PO DAILY [facility] Last Admin: 03/26/17 10:25 Dose: 81 mg Atorvastatin Calcium (Lipitor) 10 mg PO DIN [facility] Last Admin: 03/26/17 17:45 Dose: 10 mg Famotidine (Pepcid) 20 mg PO 1000,2200 [facility] Last Admin: 03/26/17 21:26 Dose: 20 mg Heparin Sodium (Porcine) (Heparin) 5,000 units SC Q12 [facility] PRN Reason: Protocol Last Admin: 03/26/17 21:26 Dose: 5,000 units Ceftriaxone Sodium (Rocephin 1 Gram Ivpb) 1 gm in 100 mls @ 100 mls/hr IVPB DAILY [facility] PRN Reason: Protocol Last Admin: 03/26/17 10:26 Dose: 100 mls/hr - Labs Labs: 03/25/17 08:07 03/25/17 08:07 - Constitutional Appears: Non-toxic, No Acute Distress - Head Exam Additional comments: hemtoma on the left forehead and periorbital area slowly resolving - Neck Exam Neck Exam: absent: Meningismus - Respiratory Exam Respiratory Exam: Decreased Breath Sounds - Cardiovascular Exam Cardiovascular Exam: +S1, +S2 - GI/Abdominal Exam GI & Abdominal Exam: Soft. absent: Tenderness Assessment and Plan - Assessment and Plan (Free Text) Plan: Assessment sepsis due to urinary tract infection with E. coli, clinically improving left forehead and periorbital hematoma from a fall HTN seizure disorder history of leukemia hypothyroidism history of cataracts S/P cholecystectomy Plan continue Rocephin (day 5) and will continue to monitor clinically; when ready for discharge, the patient can be switched to PO Cefpodoxime 200 mg BID for another 6 days
--- NOTE | 2017-03-27 16:32 | PN ---
DATE: SUBJECTIVE: The patient is 81 years old seen and examined, awake, alert, oriented, communicative, and eating well. PHYSICAL EXAMINATION: VITAL SIGNS: She is afebrile, pulse 79, respirations 20, and blood pressure 121/73. LUNGS: Bilateral fair airflow. No rhonchi or crackles. HEART: S1 and S2 audible. ABDOMEN: Soft and nontender. No rebound. No guarding. NEUROLOGIC: The patient is awake and alert and able to communicate. Moves all extremities. She has hematoma on the left forehead and she has periorbital ecchymosis. ASSESSMENT: 1. Generalized weakness and difficulty walking. 2. Status post fall. 3. Left facial contusion and forehead hematoma. 4. Enterococcus faecalis urinary tract infection. PLAN: We will continue the patient on current medications and discussed with Certified Control Systems Technician. The patient will be transferred to as soon as bed is available, might be today or tomorrow. Rojelio Mortensen MD
[2017-03-27 16:49] VITALS: BP 118/70; PULSE 72; RESP 18; TEMP 97.4; O2SAT 99
== END 2017-03-27 17:59 | DRG 872 ==
LOC: ED 07:25 → ERH 09:28 → CCU 10:00 → 3RSO 03-23 17:13
PROVIDERS: ADMIT Internal Medicine; ATTEND Internal Medicine
DX: A41.9 Sepsis, unspecified organism (principal); N17.9 Acute kidney failure, unspecified; N39.0 Urinary tract infection, site not specified; B96.20 Unspecified Escherichia coli [E. coli] as the cause of diseases classified elsewhere; E86.0 Dehydration; F03.90 Unspecified dementia, unspecified severity, without behavioral disturbance, psychotic disturbance, mood disturbance, and anxiety; G40.909 Epilepsy, unspecified, not intractable, without status epilepticus; I10 Essential (primary) hypertension; H91.90 Unspecified hearing loss, unspecified ear; D64.9 Anemia, unspecified; M19.90 Unspecified osteoarthritis, unspecified site; E03.9 Hypothyroidism, unspecified; R26.2 Difficulty in walking, not elsewhere classified; E78.5 Hyperlipidemia, unspecified; R29.6 Repeated falls; S05.12XD Contusion of eyeball and orbital tissues, left eye, subsequent encounter; S00.83XD Contusion of other part of head, subsequent encounter; W19.XXXD Unspecified fall, subsequent encounter; Z85.6 Personal history of leukemia; Z79.82 Long term (current) use of aspirin; Z90.49 Acquired absence of other specified parts of digestive tract